=== PATIENT | female | born 1965 | race Caucasian/White ===

== ENCOUNTER 2016-12-21 06:59 | Inpatient (IN) | payer OTHER ==
[~2016-12-21] VITALS: Ht 162.6 cm; Wt 91.9 kg
[~2016-12-21 06:59] MED LIST: CEFDINIR300 M1 PO; LAC PO; ZES10 PO
--- NOTE | 2016-12-21 07:05 | NUR ---
PT BIBA FOR CO BACK PAIN. PER MEDIC, PT WAS GETTING OUT OF BED AND MISSTEPPED AND FELL ONTO A LINOLEUM FLOOR. PT STS SHE HAS HAD BACK PAIN ON AND OFF FOR "ALMOST A YEAR" AND REPORTS "IT USUALLY GOES AWAY ON ITS OWN." PT DENIES TRAUMA. PT AAO4, RESP E/U.
--- NOTE | 2016-12-21 07:16 | NUR ---
MSE COMPLETED BY DR. LEES, VERIFIED PT THAT SHE CANNOT POSSIBLY BE PT REPORTS SHE HAS TUBAL LIGATION
[2016-12-21 07:35] LABS: CALCIUM 9.1 mg/dL (8.5-10.1); CARBON DIOXIDE 28.3 mmol/L (21-32); CHLORIDE SERUM 105 mmol/L (98-107); GFR1 > 60 mL/min; GLUCOSE SERUM 127 mg/dL (74-106); POTASSIUM SERUM 4.1 mmol/L (3.5-5.1); SODIUM SERUM 141 mmol/L (136-145)
--- NOTE | 2016-12-21 07:37 | NUR ---
PT TAKEN TO CT VIA [facility] IN A STABLE CONDITION
[2016-12-21 07:40] LABS: ALBUMIN 3.5 g/dL (3.4-5.0); ALKALINE PHOSPHATASE 86 U/L (46-116); ALT/SGPT 33 U/L (14-59); AST/SGOT 15 U/L (15-37); BASOPHIL % 0.4 % (0-2); BILIRUBIN TOTAL 0.4 mg/dL (0.20-1.00); LIPASE 192 IU/L (73-393); PLATELET COUNT 301 x10^3mcL (130-400); RED CELL DISTRIBUTION WIDTH 13.7 % (11.5-14.5); TOTAL PROTEIN, SERUM 7.3 g/dL (6.4-8.2)
--- NOTE | 2016-12-21 07:56 | NUR ---
PT BACK FROM CT WITH NO INCIDENCE, PT RESTING IN BED IN A POSITION OF COMFORT WITH EYES CLOSED, VISIBLE RISE AND FALL OF CHEST NOTED, RESP EVEN AND UNLABORED, PT IN NO ACUTE DISTRESS, SIDE RAILS UPX2, ON OXYGEN 2L VIA NC AND ON FULL MONITORS, CALL LIGHT WITHIN REACH, WILL CONTINUE TO MONITOR
--- NOTE | 2016-12-21 08:40 | NUR ---
PT DENIES TAKING ANY MEDICATIONS AT HOME, MRSA SWAB COLLECTED AND SENT TO LAB, PT RESTING IN BED IN A POSITION OF COMFORT, RESP EVEN AND UNLABORED, IN NO ACUTE DISTRESS, CALL LIGHT WITHIN REACH, WILL CONTINUE TO MONITOR
--- NOTE | 2016-12-21 08:53 | NUR ---
VIVIEN BY DR. LEES FOR PT TO BE ADMITTED TO TELE WITH OUT URINE COLLECTION
--- NOTE | 2016-12-21 08:57 | NUR ---
REPORT GIVEN TO ROBE BALES TELE FLOOR TO ASSUME CARE OF PT AFTER TRANSPORT
[2016-12-21 09:18] LABS: CHOLESTEROL/HDL RATIO 3.9; MAGNESIUM 2.3 mg/dL (1.8-2.4); PHOSPHOROUS 4.6 mg/dL (2.5-4.9)
[2016-12-21 09:22] LABS: T3 TOTAL 1.32 ng/mL
[2016-12-21 09:48] LABS: FREE T4 0.99 ng/dL (0.76-1.46); FREE THYROXINE INDEX 2.4 ug/dL (1.4-4.5); T4(THYROXINE) 7.2 ug/dL (4.7-13.3)
--- NOTE | 2016-12-21 10:00 | NUR ---
PT RECEIVED FROM ER WITH C/O BACK PAIN AFTER FALLING OFF THE BED THIS AM. PT DROWSY BUT AROUSABLE. ALERT AND ORIENTED. NO ACUTE RESP. DISTRESS NOTED. VS WNL. PT REPOSITIONED IN BED FOR COMFORT AND CALL LIGHT WITHIN REAC. IVF INITIATED, INFUSING WELL AND SITE CLEAR. WILL CONTINUE W/PLAN OF CARE.
[2016-12-21 13:17] VITALS: BP 142/82
[2016-12-21 13:22] VITALS: Ht 162.6 cm; Wt 91.9 kg
[2016-12-21 14:10] LABS: microscopic required? YES; urine erythrocyte 1+ (NEGATIVE)
[2016-12-21 14:11] VITALS: BP 144/85
[2016-12-21 14:45] LABS: AMPHETAMINE QUAL UR POSITIVE (NEG <=1000)
--- NOTE | 2016-12-21 14:49 | NUR ---
FLEXIRIL GIVEN FOR BACK SPASMS WITH FAIR RELIEF. PT SLEEPING AT THIS TIME. NO ACUTE DISTRESS NOTED.
[2016-12-21 16:31] VITALS: BP 122/75
--- NOTE | 2016-12-21 18:00 | NUR ---
PT STILL SLEEPING BUT AROUSABLE, AWAKEN BY VERBAL COMMANDS BUT WILL FALL BACK TO SLEEP. NO ACUTE RESP. DISTRESS NOTED. IVF INFUSING WELL AND SITE CLEAR. CALL LIGHT WITHIN REACH.
--- NOTE | 2016-12-21 18:47 | NUR ---
PT REMAINS SLEEPING, NO ACUTE RESP. DISTRESS NOTED. NO CHANGES IN VS. IVF INFUSING WELL AND SITE CLEAR. CALL LIGHT WITHIN REACH. WILL BE ENDORSED TO INCOMING SHIFT.
--- NOTE | 2016-12-21 19:02 | NUR ---
RECEIVED REPORT FROM ROBE ROMO, WILL TAKE OVER CARE. PT RESTING IN BED NO PAIN OR DISTRESS NOTED, WILL CONTINUE TO MONITOR.
--- NOTE | 2016-12-21 19:50 | NUR ---
PT LYING IN BED RESTING, AOX4, PT STATES NO PAIN AT THIS TIME, VERY TIRED, ABD SOFT, ROUND, NONTENDER, BOWEL SOUNDS ACTIVE X4, PT CALM AND COOPERATIVE, WILL CONTINUE TO MONITOR.
[2016-12-21 22:05] VITALS: BP 145/56
--- NOTE | 2016-12-22 02:00 | NUR ---
PT IN BED RESTING, NO S/S OF DISTRESS, WILL CONTINUE TO MONITOR
[2016-12-22 06:10] LABS: CALCIUM 8.6 mg/dL (8.5-10.1); CARBON DIOXIDE 27.7 mmol/L (21-32); CHLORIDE SERUM 106 mmol/L (98-107); CREATININE SERUM 0.8 mg/dL (0.6-1.0); GFR1 > 60 mL/min; GLUCOSE SERUM 116 mg/dL (74-106); POTASSIUM SERUM 3.9 mmol/L (3.5-5.1); SODIUM SERUM 141 mmol/L (136-145)
[2016-12-22 06:15] VITALS: BP 141/68
--- NOTE | 2016-12-22 07:15 | NUR ---
REPORT GIVEN TO ROBE BALES, WILL ENDORSE CARE
--- NOTE | 2016-12-22 07:50 | NUR ---
RECEIVED SLEEPING BUT AROUSABLE. NO ACUTE DISTRESS NOTED. NO S/S OF PAIN OR DISCOMFORT. IVF INFUSING WELL AND SITE CLEAR. CALL LIGHT WITHIN REACH. WILL CONTINUE W/PLAN OF CARE.
[2016-12-22 09:20] VITALS: BP 143/77
[2016-12-22 12:53] VITALS: BP 149/77
--- NOTE | 2016-12-22 15:22 | NUR ---
DOSING ON AND OFF, NO DISTRESS NOTED. NO C/O PAIN
[2016-12-22 17:01] VITALS: BP 112/69
--- NOTE | 2016-12-22 18:48 | NUR ---
PT REMAINS IN NO DISTRESS. AWAKE, ALERT AND ORIENTED. NO CHANGES IN VS. NO C/O PAIN OR DISCOMFORT AT THIS TIME. IVF INFUSING WELL AND SITE CLEAR. CALL LIGHT WITHIN REACH. WILL BE ENDORSED TO INCOMING SHIFT.
--- NOTE | 2016-12-22 19:28 | NUR ---
awake, somewhat drowsy. per report, slept through most of am shift. able to make needs known. stated her family was here, but cannot recall whether they left her phone or not. no phone noted at bedside, table or cabinet. ivf of ns at 100ml/hr. breathing even and unlabored on room air. stated comfortable at this time.
[2016-12-22 20:44] VITALS: BP 124/78
--- NOTE | 2016-12-23 00:01 | NUR ---
AMBULATED TO RESTROOM WITH ASSISTANCE.
[2016-12-23 05:52] VITALS: BP 134/80
[2016-12-23 06:26] LABS: BASOPHIL % 0.2 % (0-2); PLATELET COUNT 286 x10^3mcL (130-400); RED CELL DISTRIBUTION WIDTH 13.7 % (11.5-14.5)
[2016-12-23 07:00] LABS: CALCIUM 8.8 mg/dL (8.5-10.1); CARBON DIOXIDE 28.4 mmol/L (21-32); CHLORIDE SERUM 106 mmol/L (98-107); CREATININE SERUM 0.9 mg/dL (0.6-1.0); GFR1 > 60 mL/min; GLUCOSE SERUM 102 mg/dL (74-106); MAGNESIUM 2.4 mg/dL (1.8-2.4); PHOSPHOROUS 3.5 mg/dL (2.5-4.9); POTASSIUM SERUM 4.6 mmol/L (3.5-5.1); SODIUM SERUM 142 mmol/L (136-145)
[2016-12-23 07:03] LABS: ALBUMIN 3.2 g/dL (3.4-5.0)
--- NOTE | 2016-12-23 07:05 | NUR ---
EYES CLOSED, BREATHING EVEN AND UNLABORED. NO MOANING OR GRIMACING NOTED. ENDORSED TO NURSE ROMO
[2016-12-23 09:32] VITALS: BP 128/86
--- NOTE | 2016-12-23 13:35 | NUR ---
PT AWAKE AND ALERT. DENIES PAIN AT THIS TIME. SITTING ON BED EATING LUNCH. NO DISTRESS NOTED.
[2016-12-23] MEDS ORDERED: LEVAQUIN750 MG PO (15:42)
[2016-12-23] MEDS ORDERED: LAC PO (15:43)
[2016-12-23] MEDS ORDERED: NORCO1 TA2 PO (15:44)
[2016-12-23] MEDS ORDERED: COLACE100 MG PO (15:44)
[2016-12-23] MEDS ORDERED: GABAPENTIN100 M2 PO (15:45)
[2016-12-23] MEDS ORDERED: ZESTRIL5 MG PO (15:46)
[2016-12-23] MEDS ORDERED: LIPI10 PO (15:49)
[2016-12-23] MEDS ORDERED: ASPIR 8181 MG PO (15:49)
[2016-12-23 16:28] VITALS: BP 128/86
[2016-12-23 17:45] VITALS: BP 130/78
--- NOTE | 2016-12-23 17:55 | NUR ---
PT WILL BE DC'D HOME TODAY. WAITING FOR FAMILY. HL REMOVED AND SITE CLEAR.PT REQUESTED FOR DC INSTRUCTIONS TO BE REVIEWED WHEN DAUGHTER GETS HERE.
--- NOTE | 2016-12-23 18:33 | NUR ---
PT DC'D HOME WITH FAMILY IN NO DISTRESS. AWAKE AND ALERT. VS STABLE. NO C/O PAIN OR DISCOMFORT AT THE TIME OF DC. DC INSTRUCTIONS REVIEWED WITH PT AND DAUGHTER. RX GIVEN. PERSONAL BELONGINGS TAKEN HOME.
== END 2016-12-23 18:28 | disposition home or self-care (01) | DRG 347 ==
LOC: ED 06:59 → MU 08:34 → DU 08:34 → MU 12-22 10:28
PROVIDERS: Family Medicine; Specialist; ADMIT Family Medicine
DX: M48.07 Spinal stenosis, lumbosacral region (principal); I10 Essential (primary) hypertension; N39.0 Urinary tract infection, site not specified; E11.9 Type 2 diabetes mellitus without complications; F32.9 Major depressive disorder, single episode, unspecified; B95.61 Methicillin susceptible Staphylococcus aureus infection as the cause of diseases classified elsewhere; G43.909 Migraine, unspecified, not intractable, without status migrainosus; M48.06 Spinal stenosis, lumbar region; F41.1 Generalized anxiety disorder; J98.11 Atelectasis; E66.9 Obesity, unspecified; M12.9 Arthropathy, unspecified; I70.209 Unspecified atherosclerosis of native arteries of extremities, unspecified extremity; Z98.51 Tubal ligation status; Z91.14 Patient's other noncompliance with medication regimen; Z90.49 Acquired absence of other specified parts of digestive tract; Z68.34 Body mass index [BMI] 34.0-34.9, adult; Z83.3 Family history of diabetes mellitus
CPT/HCPCS: 82962; 83880; 84439; 94150; 97116-GP; J0696; J1100; J1885; J1956; J2405; J2930; J3010; J7030; Q0092

== ENCOUNTER 2017-09-11 12:24 | Inpatient (IN) | payer OTHER ==
[~2017-09-11] VITALS: Ht 162.6 cm; Wt 96.3 kg
[~2017-09-11 12:24] MED LIST changes: +ASPIR 8181 MG PO; +COLACE100 MG PO; +GABAPENTIN100 M2 PO; +LEVAQUIN750 MG PO; +LIPI10 PO; +NORCO1 TA2 PO; +ZESTRIL5 MG PO
[2017-09-11 12:26] VITALS: Ht 162.6 cm; Wt 96.3 kg
[2017-09-11 12:55] LABS: BASOPHIL % 0.2 % (0-2); PLATELET COUNT 330 x10^3mcL (130-400); RED CELL DISTRIBUTION WIDTH 13.8 % (11.5-14.5)
[2017-09-11 13:05] LABS: CALCIUM 9.5 mg/dL (8.5-10.1); CARBON DIOXIDE 27.6 mmol/L (21-32); CHLORIDE SERUM 103 mmol/L (98-107); GFR1 > 60 mL/min; GLUCOSE SERUM 115 mg/dL (74-106); SODIUM SERUM 140 mmol/L (136-145)
[2017-09-11 13:10] LABS: ALBUMIN 3.7 g/dL (3.4-5.0); ALKALINE PHOSPHATASE 90 U/L (46-116); ALT/SGPT 37 U/L (14-59); AST/SGOT 16 U/L (15-37); BILIRUBIN TOTAL 0.8 mg/dL (0.20-1.00); LIPASE 131 IU/L (73-393); TOTAL PROTEIN, SERUM 7.9 g/dL (6.4-8.2)
[2017-09-11 15:03] VITALS: BP 115/73
[2017-09-11 15:23] LABS: CHOLESTEROL/HDL RATIO 3.1; MAGNESIUM 2.4 mg/dL (1.8-2.4); PHOSPHOROUS 3.7 mg/dL (2.5-4.9)
[2017-09-11 15:32] LABS: T3 TOTAL 1.14 ng/mL
[2017-09-11 15:33] LABS: FREE T4 1.15 ng/dL (0.76-1.46); FREE THYROXINE INDEX 2.8 ug/dL (1.4-4.5); T4(THYROXINE) 8.1 ug/dL (4.7-13.3)
[2017-09-11 20:04] VITALS: BP 133/75
[2017-09-12 05:17] VITALS: BP 115/69
[2017-09-12 06:15] LABS: CARBON DIOXIDE 26.9 mmol/L (21-32); CHLORIDE SERUM 105 mmol/L (98-107); CREATININE SERUM 0.8 mg/dL (0.6-1.0); GFR1 > 60 mL/min; GLUCOSE SERUM 147 mg/dL (74-106); POTASSIUM SERUM 4.1 mmol/L (3.5-5.1); SODIUM SERUM 138 mmol/L (136-145)
[2017-09-12 06:21] LABS: BASOPHIL % 0.5 % (0-2); PLATELET COUNT 312 x10^3mcL (130-400); RED CELL DISTRIBUTION WIDTH 13.5 % (11.5-14.5)
[2017-09-12 08:40] VITALS: BP 127/73
[2017-09-12] MEDS ORDERED: GABAPENTIN100 M2 PO (09:08)
[2017-09-12] MEDS ORDERED: METHOCARBAMOL500 MG PO (09:09)
[2017-09-12] MEDS ORDERED: SERTRALINE50 M1 PO (09:25)
[2017-09-12 12:44] VITALS: BP 125/70
[2017-09-12 15:11] VITALS: BP 125/70
[2017-09-12 15:55] LABS: microscopic required? NO
[2017-09-12 16:08] LABS: UA SPECIFIC GRAVITY >=1.030 (1.005-1.035); urine erythrocyte NEGATIVE (NEGATIVE)
[2017-09-12 16:23] LABS: AMPHETAMINE QUAL UR POSITIVE (NEG <=1000)
[2017-09-12 17:23] VITALS: BP 113/72
== END 2017-09-12 17:48 | disposition home health service (06) | DRG 347 ==
LOC: ED 12:24 → DU 14:16
PROVIDERS: Emergency Medicine; Family Medicine
DX: M51.26 Other intervertebral disc displacement, lumbar region (principal); E11.42 Type 2 diabetes mellitus with diabetic polyneuropathy; I10 Essential (primary) hypertension; F32.9 Major depressive disorder, single episode, unspecified; Z98.51 Tubal ligation status; E78.5 Hyperlipidemia, unspecified; F41.1 Generalized anxiety disorder; G43.909 Migraine, unspecified, not intractable, without status migrainosus; Z90.49 Acquired absence of other specified parts of digestive tract; E66.9 Obesity, unspecified; Z68.32 Body mass index [BMI] 32.0-32.9, adult; F17.200 Nicotine dependence, unspecified, uncomplicated; Z91.19 Patient's noncompliance with other medical treatment and regimen
CPT/HCPCS: 82962; 84439; 97110-GP; 97116-GP; J1100; J1885; J3010; J7030; Q0092

== ENCOUNTER 2018-01-05 03:47 | Emergency (ER) | payer OTHER ==
[~2018-01-05] VITALS: Ht 157.5 cm; Wt 99.8 kg
[~2018-01-05 03:47] MED LIST changes: +METHOCARBAMOL500 MG PO; +SERTRALINE50 M1 PO
[2018-01-05 03:54] VITALS: Ht 157.5 cm; Wt 99.8 kg
[2018-01-05 06:12] LABS: BASOPHIL % 0.5 % (0-2); PLATELET COUNT 249 x10^3mcL (130-400); RED CELL DISTRIBUTION WIDTH 13.7 % (11.5-14.5)
[2018-01-05 06:34] LABS: CALCIUM 8.8 mg/dL (8.5-10.1); CARBON DIOXIDE 25.5 mmol/L (21-32); CHLORIDE SERUM 106 mmol/L (98-107); GFR1 > 60 mL/min; GLUCOSE SERUM 129 mg/dL (74-106); POTASSIUM SERUM 3.9 mmol/L (3.5-5.1); SODIUM SERUM 141 mmol/L (136-145)
[2018-01-05 06:39] LABS: ALBUMIN 3.4 g/dL (3.4-5.0); ALKALINE PHOSPHATASE 90 U/L (46-116); ALT/SGPT 33 U/L (14-59); AST/SGOT 19 U/L (15-37); BILIRUBIN TOTAL 0.22 mg/dL (0.20-1.00)
[2018-01-05 08:27] VITALS: BP 112/62
== END 2018-01-05 08:48 | disposition home or self-care (01) ==
LOC: ED 03:47
PROVIDERS: Emergency Medicine
DX: R51 Headache (principal); R11.0 Nausea; I10 Essential (primary) hypertension; E78.00 Pure hypercholesterolemia, unspecified
CPT/HCPCS: J1885; J2270; J2765; J7030

== ENCOUNTER 2018-01-19 16:04 | Emergency (ER) | payer OTHER ==
[~2018-01-19] VITALS: Ht 160 cm; Wt 99.3 kg
[2018-01-19 16:16] VITALS: Ht 160 cm; Wt 99.3 kg
[2018-01-19 18:41] VITALS: BP 127/96
== END 2018-01-19 18:41 | disposition home or self-care (01) ==
LOC: ED 16:04
DX: G43.909 Migraine, unspecified, not intractable, without status migrainosus (principal); F43.20 Adjustment disorder, unspecified; F17.210 Nicotine dependence, cigarettes, uncomplicated; E78.00 Pure hypercholesterolemia, unspecified; I10 Essential (primary) hypertension
CPT/HCPCS: J1885

== ENCOUNTER 2018-02-23 22:28 | Inpatient (IN) | payer OTHER ==
[~2018-02-23] VITALS: Ht 160 cm; Wt 99.8 kg
[2018-02-23 23:10] VITALS: Ht 160 cm; Wt 99.8 kg
[2018-02-24 00:28] LABS: BASOPHIL % 0.3 % (0-2); PLATELET COUNT 321 x10^3mcL (130-400); RED CELL DISTRIBUTION WIDTH 14.3 % (11.5-14.5)
[2018-02-24 00:36] LABS: CALCIUM 8.8 mg/dL (8.5-10.1); CHLORIDE SERUM 107 mmol/L (98-107); GFR1 > 60 mL/min; GLUCOSE SERUM 130 mg/dL (74-106); POTASSIUM SERUM 3.7 mmol/L (3.5-5.1); SODIUM SERUM 144 mmol/L (136-145)
[2018-02-24 00:41] LABS: ALBUMIN 3.6 g/dL (3.4-5.0); ALKALINE PHOSPHATASE 84 U/L (46-116); ALT/SGPT 59 U/L (14-59); AST/SGOT 24 U/L (15-37); BILIRUBIN TOTAL 0.2 mg/dL (0.20-1.00); TOTAL PROTEIN, SERUM 7.7 g/dL (6.4-8.2)
[2018-02-24 08:56] VITALS: BP 126/83
[2018-02-24 09:16] LABS: MAGNESIUM 2.6 mg/dL (1.8-2.4); PHOSPHOROUS 4.4 mg/dL (2.5-4.9)
[2018-02-24 09:17] LABS: CHOLESTEROL/HDL RATIO 5.5
[2018-02-24 09:23] LABS: FREE T4 0.89 ng/dL (0.76-1.46); FREE THYROXINE INDEX 1.8 ug/dL (1.4-4.5); T4(THYROXINE) 5.8 ug/dL (4.7-13.3)
[2018-02-24 09:52] LABS: T3 TOTAL 1.22 ng/mL
[2018-02-24 11:05] VITALS: BP 126/83
[2018-02-24] MEDS ORDERED: ZESTRIL5 MG PO (12:12)
[2018-02-24] MEDS ORDERED: ZOLOFT25 MG PO (12:12)
[2018-02-24] MEDS ORDERED: ROB500 PO (12:13)
[2018-02-24] MEDS ORDERED: LIPI10 PO (12:14)
[2018-02-24] MEDS ORDERED: ASPIR 8181 MG PO (12:14)
[2018-02-24] MEDS ORDERED: GABAPENTIN100 M2 PO (12:15)
[2018-02-24 12:28] VITALS: BP 114/62
[2018-02-24 16:40] VITALS: BP 110/68
[2018-02-24 18:14] LABS: UA SPECIFIC GRAVITY >=1.030 (1.005-1.035); microscopic required? YES; urine erythrocyte NEGATIVE (NEGATIVE)
[2018-02-24 18:27] LABS: AMPHETAMINE QUAL UR NONE DETECTED (See below)
[2018-02-24 21:22] VITALS: BP 111/57
[2018-02-25 05:27] VITALS: BP 139/73
[2018-02-25 06:33] LABS: CALCIUM 8.7 mg/dL (8.5-10.1); CARBON DIOXIDE 26.7 mmol/L (21-32); CHLORIDE SERUM 109 mmol/L (98-107); GFR1 > 60 mL/min; GLUCOSE SERUM 117 mg/dL (74-106); MAGNESIUM 2.4 mg/dL (1.8-2.4); PHOSPHOROUS 4.4 mg/dL (2.5-4.9); POTASSIUM SERUM 5.2 mmol/L (3.5-5.1); SODIUM SERUM 142 mmol/L (136-145)
[2018-02-25 06:50] LABS: BASOPHIL % 0.2 % (0-2); PLATELET COUNT 288 x10^3mcL (130-400)
[2018-02-25 10:35] VITALS: BP 129/69
[2018-02-25 13:44] VITALS: BP 136/79
[2018-02-25 16:25] VITALS: BP 127/67
[2018-02-25 20:49] VITALS: BP 121/58
[2018-02-26 05:44] VITALS: BP 137/70
[2018-02-26 06:34] LABS: BASOPHIL % 0.5 % (0-2); PLATELET COUNT 276 x10^3mcL (130-400); RED CELL DISTRIBUTION WIDTH 13.9 % (11.5-14.5)
[2018-02-26 06:40] LABS: CALCIUM 8.8 mg/dL (8.5-10.1); CARBON DIOXIDE 27.2 mmol/L (21-32); CREATININE SERUM 1.1 mg/dL (0.6-1.0); MAGNESIUM 2.4 mg/dL (1.8-2.4); PHOSPHOROUS 4.3 mg/dL (2.5-4.9); POTASSIUM SERUM 5.3 mmol/L (3.5-5.1)
[2018-02-26 09:36] VITALS: BP 126/66
[2018-02-26 12:49] VITALS: BP 150/82
[2018-02-26 17:13] VITALS: BP 136/67
[2018-02-26 17:15] VITALS: BP 148/80
[2018-02-26 21:11] VITALS: BP 141/74
[2018-02-27 05:20] VITALS: BP 136/56
[2018-02-27 09:47] VITALS: BP 130/65
[2018-02-27 17:48] VITALS: BP 145/72
[2018-02-27 18:33] LABS: BASOPHIL % 0.9 % (0-2); PLATELET COUNT 294 x10^3mcL (130-400); RED CELL DISTRIBUTION WIDTH 13.9 % (11.5-14.5)
[2018-02-27 18:39] LABS: CALCIUM 8.6 mg/dL (8.5-10.1); CARBON DIOXIDE 29.1 mmol/L (21-32); CHLORIDE SERUM 105 mmol/L (98-107); GFR1 > 60 mL/min; GLUCOSE SERUM 147 mg/dL (74-106); POTASSIUM SERUM 3.6 mmol/L (3.5-5.1); SODIUM SERUM 139 mmol/L (136-145)
[2018-02-27 20:46] VITALS: BP 134/65
[2018-02-28 05:53] VITALS: BP 114/60
[2018-02-28 06:19] LABS: ALKALINE PHOSPHATASE 77 U/L (46-116); ALT/SGPT 53 U/L (14-59); AST/SGOT 24 U/L (15-37); BILIRUBIN TOTAL 0.5 mg/dL (0.20-1.00); CALCIUM 8.7 mg/dL (8.5-10.1); CARBON DIOXIDE 26.6 mmol/L (21-32); CHLORIDE SERUM 104 mmol/L (98-107); CREATININE SERUM 0.8 mg/dL (0.6-1.0); GFR1 > 60 mL/min; GLUCOSE SERUM 107 mg/dL (74-106); POTASSIUM SERUM 3.7 mmol/L (3.5-5.1); SODIUM SERUM 141 mmol/L (136-145); TOTAL PROTEIN, SERUM 6.9 g/dL (6.4-8.2)
[2018-02-28 06:21] LABS: BASOPHIL % 0.3 % (0-2); PLATELET COUNT 290 x10^3mcL (130-400); RED CELL DISTRIBUTION WIDTH 13.9 % (11.5-14.5)
[2018-02-28 06:29] LABS: ALBUMIN 3.2 g/dL (3.4-5.0)
[2018-02-28 08:28] VITALS: BP 127/78
[2018-02-28 13:01] VITALS: BP 132/71
[2018-02-28 16:28] VITALS: BP 142/77
[2018-02-28 20:32] VITALS: BP 148/55
[2018-03-01 05:43] VITALS: BP 131/64
[2018-03-01 06:18] LABS: BASOPHIL % 0.4 % (0-2); PLATELET COUNT 273 x10^3mcL (130-400); RED CELL DISTRIBUTION WIDTH 13.8 % (11.5-14.5)
[2018-03-01 06:21] LABS: CALCIUM 8.6 mg/dL (8.5-10.1); CARBON DIOXIDE 25.8 mmol/L (21-32); CHLORIDE SERUM 109 mmol/L (98-107); CREATININE SERUM 0.9 mg/dL (0.6-1.0); GFR1 > 60 mL/min; GLUCOSE SERUM 106 mg/dL (74-106); POTASSIUM SERUM 3.8 mmol/L (3.5-5.1); SODIUM SERUM 142 mmol/L (136-145)
[2018-03-01 08:14] VITALS: BP 132/66
[2018-03-01 09:30] VITALS: BP 128/61
[2018-03-01 12:20] VITALS: BP 150/77
[2018-03-01 16:00] VITALS: BP 133/72
[2018-03-01] MEDS ORDERED: LIPI10 PO (17:01)
[2018-03-01] MEDS ORDERED: ECO81 PO (17:01)
[2018-03-01] MEDS ORDERED: METHOCARBAMOL500 MG PO (17:01)
[2018-03-01] MEDS ORDERED: ZES5 PO (17:01)
[2018-03-01] MEDS ORDERED: NEU100 PO (17:02)
[2018-03-01] MEDS ORDERED: TOR15I IV (17:02)
[2018-03-01] MEDS ORDERED: SERTRALINE50 M1 PO (17:02)
[2018-03-01 17:25] VITALS: BP 133/72
== END 2018-03-01 18:40 | DRG 347 ==
LOC: ED 22:28 → DU 02-24 07:39
PROVIDERS: Emergency Medicine; Family Medicine; Internal Medicine
DX: M51.37 Other intervertebral disc degeneration, lumbosacral region (principal); G93.41 Metabolic encephalopathy; E66.01 Morbid (severe) obesity due to excess calories; E87.5 Hyperkalemia; M48.02 Spinal stenosis, cervical region; F33.1 Major depressive disorder, recurrent, moderate; M54.5 Low back pain; E78.00 Pure hypercholesterolemia, unspecified; G89.29 Other chronic pain; E78.5 Hyperlipidemia, unspecified; F17.210 Nicotine dependence, cigarettes, uncomplicated; N39.0 Urinary tract infection, site not specified; M47.892 Other spondylosis, cervical region; B96.20 Unspecified Escherichia coli [E. coli] as the cause of diseases classified elsewhere; F41.1 Generalized anxiety disorder; M48.061 Spinal stenosis, lumbar region without neurogenic claudication; R73.03 Prediabetes; W01.0XXA Fall on same level from slipping, tripping and stumbling without subsequent striking against object, initial encounter; Y93.89 Activity, other specified; Y92.89 Other specified places as the place of occurrence of the external cause; Y99.8 Other external cause status; Z98.51 Tubal ligation status; Z68.39 Body mass index [BMI] 39.0-39.9, adult
CPT/HCPCS: 83880; 84439; 97110-GP; 97116-GP; 97530-GP; 97535-GP; J0696; J1885; J2060; J2270; J2405; J7030; Q0162

== ENCOUNTER 2018-03-21 14:50 | Emergency (ER) | payer OTHER ==
[~2018-03-21] VITALS: Ht 157.5 cm; Wt 99.8 kg
[~2018-03-21 14:50] MED LIST changes: +ECO81 PO; +NEU100 PO; +ROB500 PO; +TOR15I IV; +ZES5 PO; +ZOLOFT25 MG PO
[2018-03-21 15:04] VITALS: Ht 157.5 cm; Wt 99.8 kg
[2018-03-21 17:28] VITALS: BP 138/70
== END 2018-03-21 17:28 | disposition home or self-care (01) ==
LOC: ED 14:50
DX: G89.29 Other chronic pain (principal); M54.9 Dorsalgia, unspecified; F41.9 Anxiety disorder, unspecified; F17.210 Nicotine dependence, cigarettes, uncomplicated; I10 Essential (primary) hypertension; E78.00 Pure hypercholesterolemia, unspecified; Z98.51 Tubal ligation status
CPT/HCPCS: 36600; J1885; J2060

== ENCOUNTER 2018-04-12 15:50 | Emergency (ER) | payer OTHER ==
[~2018-04-12] VITALS: Ht 160 cm; Wt 100.7 kg
[2018-04-12 15:53] VITALS: Ht 160 cm; Wt 100.7 kg
[2018-04-12 16:59] LABS: BASOPHIL % 0.4 % (0-2); PLATELET COUNT 312 x10^3mcL (130-400); RED CELL DISTRIBUTION WIDTH 13.2 % (11.5-14.5)
[2018-04-12 17:03] LABS: CARBON DIOXIDE 25.5 mmol/L (21-32); CHLORIDE SERUM 106 mmol/L (98-107); CREATININE SERUM 0.9 mg/dL (0.6-1.0); GFR1 > 60 mL/min; GLUCOSE SERUM 105 mg/dL (74-106); POTASSIUM SERUM 3.5 mmol/L (3.5-5.1); SODIUM SERUM 140 mmol/L (136-145)
[2018-04-12 17:08] LABS: ALBUMIN 3.7 g/dL (3.4-5.0); ALKALINE PHOSPHATASE 97 U/L (46-116); ALT/SGPT 64 U/L (14-59); AST/SGOT 29 U/L (15-37); BILIRUBIN TOTAL 0.4 mg/dL (0.20-1.00); LIPASE 186 IU/L (73-393); MAGNESIUM 2.3 mg/dL (1.8-2.4); PHOSPHOROUS 3.9 mg/dL (2.5-4.9); TOTAL PROTEIN, SERUM 7.7 g/dL (6.4-8.2)
[2018-04-12 17:38] LABS: microscopic required? NO
[2018-04-12 17:42] LABS: UA SPECIFIC GRAVITY >=1.030 (1.005-1.035); urine erythrocyte NEGATIVE (NEGATIVE)
[2018-04-12 18:20] VITALS: BP 134/71
== END 2018-04-12 18:20 | disposition home or self-care (01) ==
LOC: ED 15:50
PROVIDERS: Emergency Medicine
DX: R07.89 Other chest pain (principal); R51 Headache; G89.29 Other chronic pain; M54.9 Dorsalgia, unspecified; I10 Essential (primary) hypertension; E78.00 Pure hypercholesterolemia, unspecified; F41.9 Anxiety disorder, unspecified; Z98.51 Tubal ligation status
CPT/HCPCS: 83880; J1885; J2270; J2405; J7030; Q0092

== ENCOUNTER 2018-06-06 17:41 | Emergency (ER) | payer OTHER ==
[~2018-06-06] VITALS: Ht 160 cm; Wt 100.7 kg
[2018-06-06 17:43] VITALS: Ht 160 cm; Wt 100.7 kg
[2018-06-06 22:08] VITALS: BP 128/77
== END 2018-06-06 22:14 | disposition home or self-care (01) ==
LOC: ED 17:41
DX: R05 Cough (principal); R51 Headache; I10 Essential (primary) hypertension; E78.00 Pure hypercholesterolemia, unspecified; F41.9 Anxiety disorder, unspecified; F17.210 Nicotine dependence, cigarettes, uncomplicated; Z98.51 Tubal ligation status
CPT/HCPCS: J1885; Q0162

== ENCOUNTER 2018-07-20 17:11 | Emergency (ER) | payer OTHER ==
[~2018-07-20] VITALS: Ht 154.9 cm; Wt 90.7 kg
[2018-07-20 17:16] VITALS: Ht 154.9 cm; Wt 90.7 kg
[2018-07-20 18:55] LABS: BASOPHIL % 0.4 % (0-2); PLATELET COUNT 308 x10^3mcL (130-400); RED CELL DISTRIBUTION WIDTH 14.4 % (11.5-14.5)
[2018-07-20 19:00] LABS: CALCIUM 8.9 mg/dL (8.5-10.1); CARBON DIOXIDE 29.4 mmol/L (21-32); CREATININE SERUM 1.1 mg/dL (0.6-1.0); POTASSIUM SERUM 3.8 mmol/L (3.5-5.1)
[2018-07-20 19:05] LABS: ALBUMIN 3.6 g/dL (3.4-5.0); BILIRUBIN TOTAL 0.25 mg/dL (0.20-1.00); MAGNESIUM 2.4 mg/dL (1.8-2.4); TOTAL PROTEIN, SERUM 8.1 g/dL (6.4-8.2)
[2018-07-20 21:09] VITALS: BP 120/67
== END 2018-07-20 21:09 | disposition home or self-care (01) ==
LOC: ED 17:11
PROVIDERS: Emergency Medicine
DX: G89.29 Other chronic pain (principal); M54.5 Low back pain; R55 Syncope and collapse; R79.89 Other specified abnormal findings of blood chemistry; R74.0 Nonspecific elevation of levels of transaminase and lactic acid dehydrogenase [LDH]; M54.2 Cervicalgia; R51 Headache; F41.9 Anxiety disorder, unspecified; E78.00 Pure hypercholesterolemia, unspecified; I10 Essential (primary) hypertension
CPT/HCPCS: 36415; J2270

== ENCOUNTER 2018-09-26 01:10 | Inpatient (IN) | payer OTHER ==
[~2018-09-26] VITALS: Ht 160 cm; Wt 102.3 kg
[2018-09-26 01:18] VITALS: Ht 160 cm; Wt 102.3 kg
--- NOTE | 2018-09-26 01:22 | NUR ---
PT BROUGHT IN BY AMBULANCE FOR CHEST PAIN, PRESSURE, DENIES SOB, NAUSEA, AND VOMITTING. PT HAD ONE EPISODE OF VOMITTING WHILE ASSESSING HER, APPROXIMATELY 100ML OF CLEAR VOMIT. PT AWAKE, ALERT, RESPIRATIONS EVEN AND UNLABORED. SAFETY PERCAUTIONS IN PLACE. WILL CONTINUE TO MONITOR.
--- NOTE | 2018-09-26 01:36 | NUR ---
MOTHER AT BEDSIDE
--- NOTE | 2018-09-26 01:39 | NUR ---
DR. DIAZ AT BEDSIDE FOR MSE
--- NOTE | 2018-09-26 01:54 | NUR ---
EKG AT BEDSIDE
[2018-09-26 02:24] LABS: CALCIUM 9.3 mg/dL (8.5-10.1); CARBON DIOXIDE 25.9 mmol/L (21-32); CREATININE SERUM 1.1 mg/dL (0.6-1.0); POTASSIUM SERUM 3.9 mmol/L (3.5-5.1)
[2018-09-26 02:29] LABS: ALBUMIN 3.4 g/dL (3.4-5.0); BILIRUBIN TOTAL 3.56 mg/dL (0.20-1.00); TOTAL PROTEIN, SERUM 7.9 g/dL (6.4-8.2)
--- NOTE | 2018-09-26 02:40 | NUR ---
MEDICATED PER EMAR. PT WAS MOANING PRIOR TO MEDICATION. AT THIS POINT PT IS RESTING WITH EYES CLOSED, APPEARS DROWSY, RESPONDS TO LIGHT TACTILE STIMULI 02 SAT WAS 89% ON ROOM AIR, PLACED ON 2L/NC WITH 02 SAT UP TO 100%. RESPIRATIONS REMAIN EVEN AND UNLABORED. WILL CONTINUE TO MONITOR CLOSELY
[2018-09-26 02:48] LABS: BASOPHIL % 0.3 % (0-2); PLATELET COUNT 285 x10^3mcL (130-400)
[2018-09-26 02:49] LABS: RED CELL DISTRIBUTION WIDTH 15.4 % (11.5-14.5)
--- NOTE | 2018-09-26 03:48 | NUR ---
PATIENT CURRENTLY RESTING WITH EYES CLOSED, RESPIRATIONS EVEN AND UNLABORED. SAFETY PRECAUTIONS IN PLACE.
[2018-09-26] MEDS ORDERED: GABAPENTIN100 M2 (04:22)
[2018-09-26] MEDS ORDERED: NAPROXEN375 MG (04:22)
[2018-09-26] MEDS ORDERED: NORCO1 TA2 (04:22)
--- NOTE | 2018-09-26 04:48 | NUR ---
REPORT GIVEN TO KINGSTON NAGEL, ALL QUESTIONS AND CONCERNS WERE ADDRESSED. PT WAS RESTING WITH EYES CLOSED, RESPONDED TO VERBAL STIMULI, RESPIRATIONS EVEN AND UNLABORED. SAFETY PRECAUTIONS IN PLACE
[2018-09-26 05:02] LABS: CHOLESTEROL/HDL RATIO 6.7
--- NOTE | 2018-09-26 05:22 | NUR ---
PT WAS TRANSFERED TO ROOM 223A WITHOUT ANY ISSUES ENCOUNTERED, KINGSTON NAGEL ACCEPTED PATIENT. PT AWAKE, ALERT, RESPIRATIONS EVEN AND UNLABORED. IV SITE CDI AND PATENT WITH NO S/S OF INFILTRATION, REDNESS, EDEMA, OR DRAINAGE.
--- NOTE | 2018-09-26 05:25 | NUR ---
RECEIVED PT AWAKE, ALERT AND ORIENTED X4, DENIES HUNT, DIZZINESS AT THIS TIME. PT ON 2L VIA NC, BREATHING IS EVEN AND SLIGHTLY LABORED, DENIES FEELING SOB. TELE MONITOR IN PL, #10, SHOWING NSR, PT REPORTING SHARP EPIGASTRIC PAIN 9/, WILL MEDICATE PER EMAR. PT ALSO EXPERIENCING N/V, HEMATEMESIS NOTED. PT APPEARS RESTLESS AND ANXIOUS WELL, TOSSING AROUND IN BED AND MOANING, MOTHER IS AT BEDSIDE. IV NOTED TO RH, NO PAIN, SWELLING OR REDNESS NOTED TO AREA. ALL SAFETY AND COMFORT MEASURES MAINTAINED. PT ORIENTED TO ROOM AND ENVIRONMENT, CALL LIGHT AND PERSONAL ITEMS IN REACH. WILL CONTINUE TO MONITOR.
[2018-09-26 05:49] VITALS: BP 137/64
--- NOTE | 2018-09-26 07:00 | NUR ---
PT RESTING COMFORTABLY AT THIS TIME. EYES CLOSED, BREATHING IS E/U WITH NC IN PLACE AT 2L, NO DISTRESS OBSERVED. NO INDICATION OF DISCOMFORT AT THIS TIME. MOTHER IS AT BEDSIDE. ALL SAFETY AND COMFORT MEASURES MAINTAINED. CALL LIGHT AND PERSONAL ITEMS IN REACH. WILL ENDORSE CARE TO AM NURSE.
[2018-09-26 07:14] LABS: BASOPHIL % 0.4 % (0-2); PLATELET COUNT 263 x10^3mcL (130-400)
[2018-09-26 07:15] LABS: RED CELL DISTRIBUTION WIDTH 15.6 % (11.5-14.5)
--- NOTE | 2018-09-26 07:30 | NUR ---
PT IS AAOX 4, GROGGY. TELE [address] PL[address] READING SINUS IRVIN, HR 56 BPM. RESP EVEN AND UNLABORED. LUNG SOUNDS CTA. PT ON 2 LPM O2. ABDOMEN ROUND, FIRM, DISTENDED. BOWEL SOUNDS HYPOACTIVE. DENIES N/V. SKIN CDI. NO EDEMA NOTED. PERIPHERAL PULSES PALPABLE. IVF RUNNING TO RH, SITE IS PATENT, WITH NO S/S OF INFECTION OR INFILTRATION NOTED. PT DENIES PAIN AT THIS TIME. CALL LIGHT WITHIN REACH. BED IN LOW POSITION.
[2018-09-26 07:32] LABS: CALCIUM 8.8 mg/dL (8.5-10.1); CARBON DIOXIDE 23.7 mmol/L (21-32); CHLORIDE SERUM 102 mmol/L (98-107); CREATININE SERUM 0.9 mg/dL (0.6-1.0); GFR1 > 60 mL/min; GLUCOSE SERUM 236 mg/dL (74-106); MAGNESIUM 2.3 mg/dL (1.8-2.4); PHOSPHOROUS 3.4 mg/dL (2.5-4.9); POTASSIUM SERUM 3.7 mmol/L (3.5-5.1); SODIUM SERUM 136 mmol/L (136-145)
--- NOTE | 2018-09-26 08:04 | NUR ---
TELE 10 IS READING SINUS IRVIN, HT 56. UPON REVIEWING MONITOR STRIPS PT HAS BEEN TRENDING 50-[address] PERES TO MAKE HIM AWARE. AWAITING CALL BACK.
--- NOTE | 2018-09-26 09:00 | NUR ---
REPORTED TO DR. PERES PT HEART RATE HAS BEEN TRENDING BETWEEN 50-58 BPM. MORPHINE PRN HELD. NO NEW ORDERS AT THIS TIME.
[2018-09-26 09:17] VITALS: BP 172/76
--- NOTE | 2018-09-26 09:30 | NUR ---
PT REPORTS ACUTE NAUSEA. ZOFRAN GIVEN. A/M MEDS HELD DUE TO NAUSEA. PT REPORTS PAIN 12/15. B/P 172/76 (108), HR 55BPM, RR 20. NO MORPHINE GIVEN FOR PAIN AT THIS TIME DUE TO LOW HEART RATE. SET PT UP IN BED. ENCOURAGED HER TO TALK AND ORIENT TO SURROUNDING. PT IS GROGGY AT THIS TIME. WILL CONTINUE TO MONITOR. CALL LIGHT WITHIN REACH.
--- NOTE | 2018-09-26 09:54 | NUR ---
PT NAUSEA HAS DECREASED. PT STATES SHE CAN TOLERATE MEDICATION BY MOUTH AT THIS TIME. DUE MEDS GIVEN. ROUTINE ROBAXIN GIVEN FOR PAIN AND MUSCLE SPASM. CALL LIGHT WITHIN REACH.
[2018-09-26 11:25] LABS: microscopic required? NO
[2018-09-26 12:16] LABS: UA SPECIFIC GRAVITY 1.025 (1.005-1.035); urine erythrocyte NEGATIVE (NEGATIVE)
--- NOTE | 2018-09-26 12:49 | NUR ---
BS 163 3 UNITS REG INSULIN GIVEN S/Q. MALENA, PT EDUCATOR VISITED WITH PT. PT STATED TO MALENA THAT SHE IN NOT DIABETIC. MALENA REQUESTED THIS RN TO REPORT TO MD THAT PT NEEDS DIABETIC TEACHING, GLUCOMETER, TEST STRIPS, ETC WELL DIETARY CONSULT. PAGED DR. PERES, AWAITING CALL BACK. PT IS TOLERATING CCHO DIET WITH NO N/V AT THIS TIME. PT DENIES PAIN OR DISCOMFORT AT THIS TIME. CALL LIGHT WITHIN REACH.
[2018-09-26 14:34] VITALS: BP 128/69
[2018-09-26 15:05] LABS: AMPHETAMINE QUAL UR NONE DETECTED (See below)
--- NOTE | 2018-09-26 15:24 | NUR ---
IV FLUIDS REPLENISHED. PT SITTING UP IN BED VISITING WITH FRIENDS. PT DENIES PAIN, N/V AT THIS TIME. CALL LIGHT WITHIN REACH.
--- NOTE | 2018-09-26 16:38 | NUR ---
REPORTED TO DR. PERES, ALK PHOS 590, AMMONIA 292. NO NEW ORDERS AT THIS TIME.
[2018-09-26 16:45] VITALS: BP 133/75
--- NOTE | 2018-09-26 16:55 | NUR ---
LACTULOSE GIVEN FOR AMMONIA LEVEL OF 292. PT DENIES PAIN AND DISCOMFORT. FLUIDS ENCOURAGED. CALL LIGHT WITHIN REACH.
--- NOTE | 2018-09-26 17:43 | NUR ---
REPORTED TO DR. OWUSU THAT MRI ERCP CAN NOT BE DONE [facility] UNTIL 09/29/18. DR. OWUSU STATED IF THE PROCEDURE CAN NOT BE DONE THIS WEEKEND HE WILL PROCEED WITH A DIFFERENT PROCEDURE ON SATURDAY AND A ERCP WILL NOT BE DONE. [facility] MACHINE HELPER MADE AWARE.
--- NOTE | 2018-09-26 18:36 | NUR ---
PT IS AAOX4. FLAVIO. STATES SHE HAS ABDOMINAL PAIN, 5 BUT IT WILL. REFUSED PAIN MEDICATION AT THIS TIME. TELE [address] READING SINUS IRVIN, HR 59BPM. PT DEINES CHEST PAIN AND SYNCOPE. IV CATH TO RH IS PATENT. NO S/S OF INFECTION OR INFILTRATION NOTED. CALL LIGHT WITHIN REACH. BED IN LOWEST POSITION. WILL ENDORSE ALL CARE TO NOC RN.
--- NOTE | 2018-09-26 19:15 | NUR ---
RECEIVED PT IN BED RESTING. AAOX4.BREATHING EVEN AND UNLABORED.NO C/O PAIN AT THIS TIME.PT STATED SHE HAD A LOOSE STOOL DUE TO LACTULOSE.IV SITE PATENT AND INTACT. BED IN LOWEST POSITION,CALL,LIGHT WITHIN REACH. WILL CONTINUE TO MONITOR.
[2018-09-26 20:54] VITALS: BP 130/69
--- NOTE | 2018-09-27 04:57 | NUR ---
PT C/O SEVERE ITCHINESS. MEDICATED BENADRYL PO ORDERED.WILL CONTINUE TO MONITOR.
--- NOTE | 2018-09-27 05:19 | NUR ---
PT ASLEEP.NO DISTRESS NOTED.NO S/S OF PAIN.BED IN LOWEST POSITION,CALL LIGHT WITHIN REACH. WILL CONTINUE TO MONITOR.
[2018-09-27 05:46] VITALS: BP 137/55
[2018-09-27 07:07] LABS: BASOPHIL % 0.6 % (0-2); CALCIUM 8.9 mg/dL (8.5-10.1); CARBON DIOXIDE 25.4 mmol/L (21-32); CHLORIDE SERUM 106 mmol/L (98-107); CREATININE SERUM 0.9 mg/dL (0.6-1.0); GFR1 > 60 mL/min; GLUCOSE SERUM 148 mg/dL (74-106); PLATELET COUNT 251 x10^3mcL (130-400); POTASSIUM SERUM 3.6 mmol/L (3.5-5.1); SODIUM SERUM 141 mmol/L (136-145)
--- NOTE | 2018-09-27 07:14 | NUR ---
CARE ENDORSED TO DAY NURSE GER.
[2018-09-27 07:40] LABS: BILIRUBIN DIRECT 3.21 mg/dL (0.0-0.2); BILIRUBIN TOTAL 3.9 mg/dL (0.20-1.00)
[2018-09-27 07:41] LABS: ALBUMIN 3.2 g/dL (3.4-5.0)
--- NOTE | 2018-09-27 07:45 | NUR ---
PT IS AAOX4. GROGGY. MILD SLUR TO SPEECH. DENIES H/A OR DIZZINESS. RESP EVEN AND UNLABORED. LUNG SOUNDS CTA. ON R/A. TELE [address] READING NSR. ABDOMEN ROUND, DISTENDED, NONTENDER. BOWEL SOUNDS ACTIVE. SKIN CDI. PERIPHERAL PULSES PALPABLE. NO EDEMA NOTED. IVF RUNNNIG TO RH, SITE IS PATENT WITH NO S/S OF INFECTION OR INFILTRATION. CALL LIGHT WITHIN REACH. BED ALARM ON. BED IN LOWEST POSITION.
[2018-09-27 08:39] VITALS: BP 144/72
--- NOTE | 2018-09-27 08:56 | NUR ---
DUE MEDS GIVEN. PT HAS C/O LEFT EYE SORENESS/REDNESS. WILL REPORT TO DR. PERES. PT STATES PAIN IS TOLERABLE AT THIS. CALL LIGHT WITHIN REACH.
[2018-09-27 12:14] VITALS: BP 127/78
--- NOTE | 2018-09-27 12:36 | NUR ---
PT IS SITTING UP AT BEDSIDE EATING LUNCH. RESP EVEN AND UNLABORED. NO DISTRESS NOTED. CALL LIGHT WITHIN REACH.
--- NOTE | 2018-09-27 14:57 | NUR ---
REVIEW DISCHARGE INSTRUCTIONS WITH. ALL FORMS SIGNED. RX GIVEN TO PT. ALL QUESTIONS ANSWERED. NO DISTRESS NOTED. CALL LIGHT WITHIN REACH.
--- NOTE | 2018-09-27 16:00 | NUR ---
LAB REPORTED PT'S HAS ESBL MDRO IN BLOOD. DR. BOB AND DR. MELO MADE AWARE. DR. MELO STATED HE WILL COME AND SEE PATIENT. PATIENT MADE AWARE.
[2018-09-27 16:40] VITALS: BP 125/78
--- NOTE | 2018-09-27 16:54 | NUR ---
BS TAKEN NO INSULIN COVERAGE NEEDED. PT DENIES PAIN OR DISCOMFORT. DAUGHTER AT BEDSIDE. CALL LIGHT WITHIN REACH.
--- NOTE | 2018-09-27 18:24 | NUR ---
PT IS AAOX4. RESP EVEN AND UNLABORED. PT STATES SHE HAS ABDOMINAL PAIN 5/10 BUT REFUSES PAIN MEDICATION. IV CATH TO RH PATENT WITH NO S/S OF INFECTION AND INFILTRATION. BED IN LOW POSITION. CALL LIGHT WITHIN REACH. WILL ENDORSE ALL CARE TO NOC SHIFT RN.
--- NOTE | 2018-09-27 18:56 | NUR ---
RECEIVED ORDER FROM LITO ORELLANA NP. D/C CLEAR LIQUID DIET. NEW ORDER: CLEAR LIQUID DIET CCHO. ORDER NOTED AND CARRIED OUT. PATIENT MADE AWARE.
[2018-09-27 21:09] VITALS: BP 126/67
--- NOTE | 2018-09-27 21:17 | NUR ---
PT RECIEVED AAO REG RESP NO SOB IV INFUSING WELL WITH TH SITE PATENT AND INTACT,PT ON TELE MONITOE AND IN NSR NO ECTOPY OR CHEST PAIN AT THIS TIME PT WITH C/O OF GENERALISE ABDO PAIN ARCHING IN NATURE AT THE SCALE OF 6/10.PT WAS MEDICATED WITH TRAMADOL 50 MG PO ORDER AND WILL CONTINUE TO MONITOR CALL LIGHT EASY REACHED AND WILL CONTINUE TO MONITOR.
[2018-09-28 05:48] VITALS: BP 102/46
--- NOTE | 2018-09-28 06:23 | NUR ---
PT HAD A RESTING NIGHT NO CHANGE AT THIS TIME,WILL CONTINUE TO MONITOR.
[2018-09-28 07:13] LABS: CALCIUM 9.1 mg/dL (8.5-10.1); CHLORIDE SERUM 103 mmol/L (98-107); GFR1 > 60 mL/min; GLUCOSE SERUM 122 mg/dL (74-106); MAGNESIUM 2.2 mg/dL (1.8-2.4); PHOSPHOROUS 4.4 mg/dL (2.5-4.9); POTASSIUM SERUM 3.5 mmol/L (3.5-5.1); SODIUM SERUM 138 mmol/L (136-145)
[2018-09-28 07:18] LABS: BASOPHIL % 0.5 % (0-2); PLATELET COUNT 251 x10^3mcL (130-400)
[2018-09-28 07:26] LABS: RED CELL DISTRIBUTION WIDTH 15.4 % (11.5-14.5)
--- NOTE | 2018-09-28 07:30 | NUR ---
PT IS AAOX4. RESP EVEN AND UNLABORED. LUNG SOUNDS CTA. ON R/A. TELE [address] READING NSR. ABDOMEN SOFT, NONTENDER, DISTENDED. BOWEL SOUNDS ACTIVE. SKIN CDI. NO EMEMA NOTED. PERIPHERAL PULSES PALPABLE. IVF RUNNING TO RH HAND, PATENT, WITH NO S/S OF INFECTION OR INFILTRATION. PT DENIES PAIN AT THIS TIME. CALL LIGHT WITHIN REACH. BED IN LOWEST POSITION.
--- NOTE | 2018-09-28 08:42 | NUR ---
DUE MEDS GIVEN. PT DENIES PAIN OR DISCOMFORT. RESP EVEN AND UNLABORED. NO DISTRESS NOTED. CALL LIGHT WITHIN REACH.
[2018-09-28 09:54] VITALS: BP 139/80
[2018-09-28 12:37] VITALS: BP 147/87
--- NOTE | 2018-09-28 13:54 | NUR ---
DUE MEDS GIVEN AND TOLERATED WELL. PT IS SITTING UP IN BED EATING LUNCH. DENIES NAUSEA OR PAIN AT THIS TIME. FLUIDS ENCOURAGED. PT TAUGHT TO MOVE AND REPOSITION IN BED. CALL LIGHT WITHIN REACH.
--- NOTE | 2018-09-28 15:39 | NUR ---
PT HAD A 20 SECOND RUN OR BIGEMINY. REPORTED TO LITO ORELLANA NP. RECEIVED ORDER FOR STAT EKG AND AMMONIA LEVEL. ORDERS NOTED AND CARRIED OUT.
--- NOTE | 2018-09-28 16:42 | NUR ---
FIELD TRAFFIC INVESTIGATOR IN ROOM TAKING BLOOD DRAW FOR AMMONIA LEVEL. B/S TAKEN NO INSULIN NEEDED. RESP EVEN AND UNLABORED. NO DISTRESS NOTED. PT DENIES CHEST PAIN OR PRESSURE OR ANY DISCOMFORT AT THIS TIME. DM2 TEACHING GIVEN. PT TAUGHT TO CONSUME A DIET HIGH IN FIBER, NO CANDY. PT VERBLIZED UNDERSTANDING. CALL LIGHT WITHIN REACH.
[2018-09-28 18:21] VITALS: BP 156/74
--- NOTE | 2018-09-28 18:30 | NUR ---
ULTRAM PO GIVEN FOR L EYE PAIN. COLD COMPRESS APPLIED. RESP EVEN AND UNLABORED. NO RESP DISTRESS NOTED. PT DENIES ABDOMINAL PAIN AT THIS TIME. TELE [address] READING SINUS IRVIN. IV CATH TO RH PATENT WITH NO S/S OF INFECTION NOTED. CALL LIGHT WITHIN REACH. BED IN LOWEST POSITION. WILL ENDORSE ALL CARE TO NOC ROBE.
--- NOTE | 2018-09-28 19:40 | NUR ---
RECEIVED PT AOX4 ABLE TO RESPOND TO COMMANDS, MAKE NEEDS KNOWN. SPEECH CLEAR, NO REPORTED HUNT, NO FACIAL DROOP. EYES PERRLA, BRISK RESPONSE.LEFT EYE REDNESS/DISCOMFORT NOTED, NO DRAINAGE. TRACHEA MIDLINE. LUNG SOUNDS CTAB, CHEST RISE/FALL SYMMETRIC, E/U BREATHING NOTED. NO ACUTE RESP DISTRESS OR SOB.S1/S2 SOUNDS HEARD, CHEST WALL STABLE, NO S/S OR REPORT OF CHEST PAIN. SKIN COLOR CONSISTENT WITH ETHNICITY, CAP REFILL <3 SECONDS, PULSES MODERATE X4, NO EDEMA. NS @ 100 ML/HR. NPO AT MIDNIGHT, PT INSTRUCTED ON PROCEDURE IN AM, PT VERBALIZES UNDERSTANDING. NO S/S OF N/V, PT DENIES.ACTIVE BOWEL SOUNDS X4, ABD SOFT/ROUND. NO GI COMPLAINTS AT THIS TIME WHEN ASKED.PT ABLE TO VOID FREELY, NO COMPLAINTS.SKIN WARM/DRY TO TOUCH, SKIN INTACT. IV TO RIGHT HAND, PORT PATENT, NO S/S OF INFILTRATION, DRESSING CDI, INFUSING. TEACHING PROVIDED, HOB ELEVATED 45 DEGREES PER PT COMFORT, BED AT LOWEST SETTING, WILL CONT TO MONITOR.
[2018-09-28 21:23] VITALS: BP 134/63
--- NOTE | 2018-09-29 01:29 | NUR ---
UPON ENTERING ROOM PT SLEEPING, EASILY AROUSABLE, NO ACUTE RESP DISTRESS. NS REMAINS INFUSING @ 100 ML/HR TO RIGHT HAND, NO S/S OF INFILTRATION.
--- NOTE | 2018-09-29 06:50 | NUR ---
PT SLEEPING BUT EASILY AROUSALBE AT THIS TIME. PT IN NO ACUTE RESP DISTRESS, DENIES SOB OR ANY PAIN WHEN ASKED. PT REPORTS WANTING TO GET BETTER AND GET OUT OF THE HOSPITAL, EDUCATION PROVIDED ON POC. RIGHT HAND 20 G, INFUSING NS @ 100 ML/HR, NO S/S OF INFILTRATION, DRESSING CDI.
[2018-09-29 06:54] LABS: BASOPHIL % 0.2 % (0-2); PLATELET COUNT 272 x10^3mcL (130-400)
--- NOTE | 2018-09-29 07:00 | NUR ---
SPOKE WITH MIRA NAGEL FROM OR, GAVE REPORT ON PT'S STATUS.
--- NOTE | 2018-09-29 07:05 | NUR ---
GAVE REPORT TO DARIA NAGEL. UPDATES GIVEN, QUESTIONS ANSWERED.
[2018-09-29 07:08] VITALS: BP 142/80
[2018-09-29 07:15] LABS: CARBON DIOXIDE 21.6 mmol/L (21-32); CHLORIDE SERUM 103 mmol/L (98-107); CREATININE SERUM 0.8 mg/dL (0.6-1.0); GFR1 > 60 mL/min; GLUCOSE SERUM 124 mg/dL (74-106); MAGNESIUM 2.1 mg/dL (1.8-2.4); PHOSPHOROUS 3.5 mg/dL (2.5-4.9); POTASSIUM SERUM 3.6 mmol/L (3.5-5.1); SODIUM SERUM 138 mmol/L (136-145)
--- NOTE | 2018-09-29 08:00 | NUR ---
SHIFT ASSESSMENT DONE. PATIENT A/A/OX4; SPEECH CLEAER. TELE#10, SR; HR,65; DENIED CHEST PAIN. BREATHING SOUND CLEAR HARRY. O2 SAT 96% ON RA. ABD ROUND/SOFT. BOWEL SOUND ACTIVE. NPO FOR ERCP THIS AM. NO N/V. C/O ABD PAIN ON 10/15. CONTINUE MONITOR. HAD LOOSE BM X1 THIS AM. AMBULATORY. IVF OF NS 100CC/HR.IV SITE TO R HAND INTACT. SX CONSENT SIGNED. CALL LIGHT IN REACH.
--- NOTE | 2018-09-29 08:33 | NUR ---
PATIENT WENT TO OR.
[2018-09-29 09:57] LABS: BILIRUBIN DIRECT 2.76 mg/dL (0.0-0.2); BILIRUBIN TOTAL 3.5 mg/dL (0.20-1.00); TOTAL PROTEIN, SERUM 7.4 g/dL (6.4-8.2)
--- NOTE | 2018-09-29 10:25 | NUR ---
P.T. NOTES UNABLE TO SEE PATIENT FOR P.T., PER NURSING PATIENT IS IN OR.
--- NOTE | 2018-09-29 10:55 | NUR ---
BACK TO ROOM AFTER ERCP DONE. PATIENT A/A/OX3; V/S WNL. DENIED PAIN. IVF OF NS 40CC/HR. ICE CHIPS GIVEN. NO N/V. CONTINUE MONITOR.
[2018-09-29 12:33] VITALS: BP 132/73
[2018-09-29 17:21] VITALS: BP 117/66
--- NOTE | 2018-09-29 17:51 | NUR ---
TOLERATED FULL LIQUID DIET. NO N/V. DENEID ABD PAIN. URIN EINCONT AT TIMES. IVF OF NS 40CC/HR. USE CANE TO WALK. CALL LIGHT IN REACH. ENDORSED CARE TO NOC NURSE.
--- NOTE | 2018-09-29 19:20 | NUR ---
RECEIVED PT IN BED RESTING QUIETLY. SHE IS ALERT,ORIENTED X4. LUNG SOUNDS CLEAR. NO SOB ON ROOM AIR. BOWEL SOUNDS ACTIVE. SHE HAS NO C/O ABDL PAIN AT THIS TIME. NO C/O N/V. W/ IVF NS AT 40 CC/HR VIA RT HAND. CALL LIGHT W/IN REACH.
[2018-09-29 21:10] VITALS: BP 108/52
--- NOTE | 2018-09-30 00:19 | NUR ---
PT AWAKE AND WATCHING TV. DENIES PAIN AT THIS TIME.
--- NOTE | 2018-09-30 05:17 | NUR ---
PT SLEPT THROUGH THE NIGHT. SHE HAD NO C/O PAIN. NO EPISODE OF N/V. SHE AMBULATES USING A CANE. IVF NS INFUSING AT 40 CC/HR VIA RT HAND. ALL NEEDS ATTENDED TO.
[2018-09-30 05:42] VITALS: BP 91/53
[2018-09-30 06:40] VITALS: BP 124/78
--- NOTE | 2018-09-30 07:50 | NUR ---
RECEIVED PATIENT FROM TRAY PACKER NURSE. PATIENT IS RESTING IN BED COMFORTABLY. IV CDI. BED RAILS UP X2, BED IN LOW POSITION. RESPIRATIONS EVEN NO ACUTE RESPIRATORY DISTRESS NOTED. CIRCULATION INTACT CAP REFIL LESS THAN 3 SECONDS. ALL QUESTIONS AND CONCERNS ADDRESSED, SAFETY PRECAUTIONS MAINTAINED.
--- NOTE | 2018-09-30 08:10 | NUR ---
PHYSICAL THERAPY DAILY NOTES CO-SIGN All documentation done by the Load Out Worker for 09/30/18 has been reviewed. I agree with the documentation. Reviewed/Co-Signed by: Flaquita Henao PT Documentation Done by:TAHMINA JACKSON TEACHER DRAMATICS CO-SIGNED FOR THE DATE 09/27/18
--- NOTE | 2018-09-30 08:20 | NUR ---
PHYSICAL THERAPY DAILY NOTES CO-SIGN All documentation done by the Sieve Grader Tender for 09/30/18 has been reviewed. I agree with the documentation. Reviewed/Co-Signed by: Flaquita Henao PT Documentation Done by:TAHMINA JACKSON IP PARALEGAL CO-SIGNED FOR THE DATE 09/29/18
[2018-09-30 10:40] VITALS: BP 133/71
--- NOTE | 2018-09-30 13:11 | NUR ---
PATIENT AMBULATED TO RESTROOM WITH CANE IN RIGHT HAND. SHE TOLORATED WELL. SHE IS BACK IN BED RESTING COMFORTABLY. IV CDI, BED RAILS UP X2, BED IN LOW POSITION. ALL QUESTIONS AND CONCERNS ADDRESSED. SAFTEY PRECAUTIONS MAINTAINED.
--- NOTE | 2018-09-30 16:11 | NUR ---
PATIENT WAS COMPLAINING OF PAIN IN OUTER CORNER OF BOTH EYES RATED 8/10. WAS GIVEN MEDICATION (SEE EMAR) FOR PAIN. PATIENT TOLORATED MEDICATION ADMINISTRATION WELL. RESPIRATIONS EVEN, NO RESPIRATORY DISTRESS NOTED. BED AT LOW POSITION, BED RAILS UP X2, CALL LIGHT WITHIN REACH ALL QUESTIONS AND CONCERNS ADDRESSED. SAFETY PRECAUTIONS MAINTAINED.
[2018-09-30 18:10] VITALS: BP 117/61
--- NOTE | 2018-09-30 18:18 | NUR ---
PATIENT SITTING UP IN BED EATING DINNER COMFORTABLY TOLORATING WELL. NO RESPIRATORY DISTRESS NOTED. IV IN RIGHT HAND INFUSING WELL NO REDNESS NOTED PATIENT DENIES PAIN AT IV SITE. PATIENT WAS COMPLAING OF PAIN IN OUTER CORNER OF EYES, WAS MEDICATED (SEE EMAR). PER PATIENT MEDICATION WAS EFFECTIVE FOR PAIN. HEAD OF THE BED ELEVATED, BED IN LOW POSITION, BED RAILS UP X2. ALL QUESTIONS AND CONCERNS ADDRESSED, SAFETY PRECAUTIONS MAINTAINED. NO ACUTE CHANGES NOTED PATIENT IS A/A/O X4. WILL ENDORSE CARE TO BOAT ENGINES INSTALLER NURSE.
--- NOTE | 2018-09-30 19:15 | NUR ---
RECEIVED PT IN BED RESTING QUIETLY. SHE IS ALERT,ORIENTED X4 W/ CLEAR SPEECH. LUNGS CTA. NO SOB ON ROOM AIR. BOWEL SOUNDS ACTIVE. SHE HAS NO C/O ABDL PAIN. NO N/V. PT STATED SHE HAS MILD PAIN AND BLURRY VISION ON BOTH EYES. ALSO STATED SHE FEELS HER EYES ARE WATERY. NOTED W/ REDNESS ON BILAT EYES. ADVISED PT THAT RESIDENT WILL BE NOTIFIED. IVF NS INFUSING AT 40 CC/HR VIA RT HAND. CALL LIGHT W/IN REACH.
[2018-09-30 21:25] VITALS: BP 130/59
--- NOTE | 2018-09-30 21:58 | NUR ---
INFORMED DR. MARTINS THAT PT IS C/O PAIN AND BLURRY VISION ON BOTH EYES. INFORMED HER THAT PT'S EYES W/ REDNESS NOTED.
--- NOTE | 2018-09-30 22:10 | NUR ---
PT SEEN BY DR. MARTINS FOR HER COMPLAIN OF PAIN AND BLURRY VISION ON BOTH EYES.
--- NOTE | 2018-10-01 05:19 | NUR ---
PT SLEPT AT LONG INTERVALS. SHE HAD NO C/O PAIN. SHE IS TOLERATING REGULAR DIET. NO N/V. NO BM NOTED THIS SHIFT. HL TO RT HAND INTACT AND PATENT. ALL NEEDS ATTENDED TO.
[2018-10-01 05:48] VITALS: BP 125/60
--- NOTE | 2018-10-01 07:40 | NUR ---
DUE MEDS GIVEN. FLUIDS ENCOURAGED. CALL LIGHT WITHIN REACH. DENIES DISTRESS OR PAIN AT THIS TIME.
--- NOTE | 2018-10-01 07:40 | NUR ---
PT IS AAOX4. NORMAL S1S2 NOTED. RESP EVEN AND UNLABORED. LUNG SOUNDS CTA. ON R/A. ABDOMEN SOFT, ROUND, AND NONDISTENDED. BOWEL SOUNDS ACTIVE. SKIN CDI. NO EMEMA NOTED. PT DENIES PAIN OR DISCOMFORT. CALL LIGHT WITHIN REACH.
--- NOTE | 2018-10-01 09:18 | NUR ---
ULTRAM GIVEN FOR H/A. FLUIDS ENCOURAGED. PT MOVED AND REPOSITIONED FOR COMFORT. CALL LIGHT WITHIN REACH.
--- NOTE | 2018-10-01 09:40 | NUR ---
DUE MEDS GIVEN. FLUIDS ENCOURAGED. CALL LIGHT WITHIN REACH. DENIES DISTRESS OR PAIN AT THIS TIME.
[2018-10-01 09:45] VITALS: BP 144/78
[2018-10-01 10:01] LABS: ALBUMIN 3.4 g/dL (3.4-5.0); BILIRUBIN DIRECT 0.58 mg/dL (0.0-0.2); BILIRUBIN TOTAL 0.9 mg/dL (0.20-1.00); TOTAL PROTEIN, SERUM 8.2 g/dL (6.4-8.2)
[2018-10-01] MEDS ORDERED: AUG500 PO (11:00)
[2018-10-01] MEDS ORDERED: LACTULOSE20 GM/30 M PO (11:01)
--- NOTE | 2018-10-01 12:11 | NUR ---
BLOOD SUGAR TAKEN NO INSULIN GIVEN. PT CALM AND REPORTS PAIN IS 3/10, STATES NO PAIN MED NEEDED AT THIS TIME. PT ASSISTED WITH CALLING DAUGHTER. TURNED AND REPOSITIONED FOR COMFORT. CALL LIGHT WITHIN REACH.
[2018-10-01 12:12] VITALS: BP 144/78
--- NOTE | 2018-10-01 16:23 | NUR ---
PATIENT REFUSED PHYSICAL THERAPY SESSIONS SECONDARY TO VISUAL PROBLEMS, TO BE SEEN FOR FOLLOW UPS
--- NOTE | 2018-10-01 17:10 | NUR ---
BLOOD SUGAR 170, 3 UNITS INSULIN GIVEN. PT DENIES PAIN OR DISCOMFORT AT THIS TIME. NO DISTRESS NOTED. CALL LIGHT WITHIN REACH.
--- NOTE | 2018-10-01 18:10 | NUR ---
PT DISCHARGED TO HOME IN NO DISTRESS. DISCHARGE ORDERS REVIEWED. RX GIVEN TO PT. IV CATH TO RH REMOVED INTACT. SITE WNL. VS: 98.2, 49, 18, 144/78, 96% ON R/A. PT DENIES PAIN OR DISCOMFORT AT TIME OF DC. ALL PERSONAL BELONGINGS TAKEN HOME.
== END 2018-10-01 18:05 | disposition home or self-care (01) ==
LOC: ED 01:10 → DU 04:21 → MU 04:21 → DU 05:13 → MU 09-29 10:23
PROVIDERS: Emergency Medicine; Internal Medicine Gastroenterology; ADMIT Internal Medicine
PROC: 0FC98ZZ Extirpation of Matter from Common Bile Duct, Via Natural or Artificial Opening Endoscopic (ICD-10-PCS; principal; 2018-09-29 09:00)
PROC: BF101ZZ Fluoroscopy of Bile Ducts using Low Osmolar Contrast (ICD-10-PCS; 2018-09-29 09:00)
PROC: 0DB68ZX Excision of Stomach, Via Natural or Artificial Opening Endoscopic, Diagnostic (ICD-10-PCS; 2018-09-29 09:00)
DX: K80.50 Calculus of bile duct without cholangitis or cholecystitis without obstruction (principal); E11.65 Type 2 diabetes mellitus with hyperglycemia; K76.0 Fatty (change of) liver, not elsewhere classified; B19.9 Unspecified viral hepatitis without hepatic coma; Z68.41 Body mass index [BMI] 40.0-44.9, adult; M94.0 Chondrocostal junction syndrome [Tietze]; E78.5 Hyperlipidemia, unspecified; I10 Essential (primary) hypertension; G89.29 Other chronic pain; M54.9 Dorsalgia, unspecified; F41.9 Anxiety disorder, unspecified; F32.9 Major depressive disorder, single episode, unspecified; F17.210 Nicotine dependence, cigarettes, uncomplicated; R29.6 Repeated falls; Z79.84 Long term (current) use of oral hypoglycemic drugs; E78.00 Pure hypercholesterolemia, unspecified; Z98.51 Tubal ligation status; Z90.49 Acquired absence of other specified parts of digestive tract
CPT/HCPCS: 43262; 82962; 97110-GP; 97116-GP; C1769; G0480; J1610; J1815; J2250; J2270; J2405; J2543; J3010; J3490; J7030; Q0092; Q0163; Q9967

== ENCOUNTER 2018-11-10 18:31 | Emergency (ER) | payer OTHER ==
[~2018-11-10 18:31] MED LIST changes: +AUG500 PO; +GABAPENTIN100 M2; +LACTULOSE20 GM/30 M PO; +NAPROXEN375 MG; +NORCO1 TA2
[2018-11-10 18:35] VITALS: Ht 160 cm
[2018-11-10 20:20] LABS: BASOPHIL % 0.4 % (0-2); PLATELET COUNT 295 x10^3mcL (130-400); RED CELL DISTRIBUTION WIDTH 14.3 % (11.5-14.5)
[2018-11-10 20:39] LABS: CALCIUM 8.9 mg/dL (8.5-10.1); CARBON DIOXIDE 26.7 mmol/L (21-32); CREATININE SERUM 1.1 mg/dL (0.6-1.0); POTASSIUM SERUM 4.3 mmol/L (3.5-5.1)
[2018-11-10 20:43] LABS: ALBUMIN 3.8 g/dL (3.4-5.0); BILIRUBIN TOTAL 0.34 mg/dL (0.20-1.00); TOTAL PROTEIN, SERUM 7.8 g/dL (6.4-8.2)
[2018-11-10 20:52] LABS: AMPHETAMINE QUAL UR NONE DETECTED (See below)
[2018-11-11 00:27] VITALS: BP 99/53
== END 2018-11-11 00:20 | disposition home or self-care (01) ==
LOC: ED 18:31
PROVIDERS: Emergency Medicine
DX: R51 Headache (principal); R42 Dizziness and giddiness; M54.6 Pain in thoracic spine; R06.02 Shortness of breath; R11.2 Nausea with vomiting, unspecified
CPT/HCPCS: G0480; J1885

== ENCOUNTER 2018-11-22 02:27 | Emergency (ER) | payer OTHER ==
[~2018-11-22] VITALS: Ht 160 cm; Wt 90.7 kg
[2018-11-22 02:28] VITALS: Ht 160 cm; Wt 90.7 kg
[2018-11-22 02:52] VITALS: BP 132/78
== END 2018-11-22 02:52 | disposition left against medical advice (07) ==
LOC: ED 02:27
DX: F41.9 Anxiety disorder, unspecified (principal); I10 Essential (primary) hypertension; E11.9 Type 2 diabetes mellitus without complications; F32.9 Major depressive disorder, single episode, unspecified; E78.00 Pure hypercholesterolemia, unspecified; Z98.51 Tubal ligation status

== ENCOUNTER 2019-03-20 15:05 | Inpatient (IN) | payer OTHER ==
[~2019-03-20] VITALS: Ht 162.6 cm; Wt 104.3 kg
[2019-03-20 15:09] VITALS: Ht 162.6 cm; Wt 104.3 kg
--- NOTE | 2019-03-20 15:17 | NUR ---
PATIENT A/O X 3 WAS BIB [facility] AFTER HAVING AN ALTERED EPISODE WHILE [employer]. PT DENIES HAVING AN EPISODE LIKE THIS BEFORE. PT WAS CONFUSED BUT NOW ANSWERING QUESTIONS APPROPRIATELY. BREATHING E/U, SKIN WARM, DRY AND INTACT. PT STS SHE IS SEEING A NEUROLOGIST FOR SLEEP STUDIES, PT HX OF DEPRESSION AND ANXIETY. PATIENT PLACED ON ALL MONITORS FOR FURTHER OBSERVATIONS. WILL CONTINUE TO MONITOR.
--- NOTE | 2019-03-20 15:54 | NUR ---
PT'S CARE ASSUMED AT THIS TIME. PT AWAKE AND ALERT TO SELF AND PLACE. UNABLE TO RECALL ALTERED EVENT AT [employer]. PT STS SHE WENT TO GET SON AND NOW SHE IS HERE IN THE HOSPITAL. C/O OF HEADACHE PAIN. DENIES ALL OTHER C/O AT THIS TIME. [id number] AT BEDSIDE. DENIES HX OF SIMILAR EPISODES. PT SPEAKS IN FULL CLEAR SENTENCES. ON [employer]OL [employer] LIB[employer]IAN/POX. WILL CONTINUE TO MONITOR.
[2019-03-20] MEDS ORDERED: ZESTRIL5 MG PO (16:35)
[2019-03-20] MEDS ORDERED: IBUPROFEN400 MG PO (16:36)
[2019-03-20] MEDS ORDERED: ABILIFY5 M1 PO (16:36)
--- NOTE | 2019-03-20 16:37 | NUR ---
DR ATKINSON, ERP, AWARE OF PT'S C/O AND AT BEDSIDE.
--- NOTE | 2019-03-20 16:50 | NUR ---
X-RAY DONE AT BEDSIDE.
--- NOTE | 2019-03-20 16:51 | NUR ---
EKG IN PROGRESS.
[2019-03-20 17:16] LABS: BASOPHIL % 0.7 % (0-2); PLATELET COUNT 284 x10^3mcL (130-400); RED CELL DISTRIBUTION WIDTH 14.2 % (11.5-14.5)
[2019-03-20 17:25] LABS: CALCIUM 8.6 mg/dL (8.5-10.1); CHLORIDE SERUM 107 mmol/L (98-107); CREATININE SERUM 0.8 mg/dL (0.6-1.0); GFR1 > 60 mL/min; GLUCOSE SERUM 91 mg/dL (74-106); SODIUM SERUM 143 mmol/L (136-145)
[2019-03-20 17:29] LABS: ALBUMIN 3.6 g/dL (3.4-5.0); ALKALINE PHOSPHATASE 93 U/L (46-116); ALT/SGPT 65 U/L (14-59); AST/SGOT 48 U/L (15-37); BILIRUBIN TOTAL 0.6 mg/dL (0.20-1.00); CHOLESTEROL 181 mg/dL (<200); HDL CHOLESTEROL 45 mg/dL (40-60); MAGNESIUM 2.6 mg/dL (1.8-2.4); TOTAL PROTEIN, SERUM 8.2 g/dL (6.4-8.2)
[2019-03-20 17:48] LABS: T3 TOTAL 1.01 ng/mL
[2019-03-20 17:49] LABS: FREE T4 1.18 ng/dL (0.76-1.46); FREE THYROXINE INDEX 2.7 ug/dL (1.4-4.5); T4(THYROXINE) 8.3 ug/dL (4.7-13.3)
--- NOTE | 2019-03-20 18:16 | NUR ---
PT REQUESTING PAIN MEDS. PT AWARE NO MED ORDERS AT THIS TIME. ERP TO EVAL CT PRIOR TO MED ORDERS. PT AGREED AND VERBALIZED UNDERSTANDING.
--- NOTE | 2019-03-20 19:10 | NUR ---
REPORT RECEIVED FROM LU NAGEL
--- NOTE | 2019-03-20 19:12 | NUR ---
REPORT GIVEN TO JUANITA RN. OPPORTUNITY GIVEN TO ASK QUESTIONS. PT'S CARE COMPLETED BY THIS RN AT THIS TIME.
--- NOTE | 2019-03-20 19:12 | NUR ---
PT AMBULATED WITH STEADY GAIT USING PERSONAL CANE AND [id number] AT SIDE TO PREVENT FALL TO BR AND BACK TO BED. PT GIVEN URINE CUP.
--- NOTE | 2019-03-20 19:32 | NUR ---
PT AXOX4. PT SPEAKING IN CLEAR AND FULL SENTENCES. PT ON PHONE WITH SON. DAUGHTER AT BEDSIDE. NAD AT THIS TIME.
--- NOTE | 2019-03-20 19:34 | NUR ---
TELE PSYCH MONITOR IN PLACE AT THIS TIME
[2019-03-20 19:36] LABS: UA SPECIFIC GRAVITY >=1.030 (1.005-1.035); microscopic required? YES; urine erythrocyte NEGATIVE (NEGATIVE)
--- NOTE | 2019-03-20 19:45 | NUR ---
PT REQUESTING FOOD AT THIS TIME PT AWARE THAT WE WILL WAIT FOR REUSLTS FROM TELE/PSYCH CONSULTATION BEFORE PT WILL BE PROVIDED WITH FOOD
[2019-03-20 19:48] LABS: AMPHETAMINE QUAL UR NONE DETECTED (See below)
--- NOTE | 2019-03-20 20:28 | NUR ---
NEUROLOGIST SPOKE WITH MD ATKINSON. MD ATKINSON WILL ORDER CT ANGIO FOR PT
--- NOTE | 2019-03-20 21:18 | NUR ---
2 UNSUCCESSFUL IV ATTEMPTS IN L AC
--- NOTE | 2019-03-20 21:34 | NUR ---
SHEILA BROWN AT BEDSIDE FOR IV INSERTION
--- NOTE | 2019-03-20 22:03 | NUR ---
SHEILA Cantor RN HAD SEVERAL UNSUCCESSFUL IV ATTEMPTS. MD ATKINSON MADE AWARE. MD ATKINSON STATES THAT HE WILL ATTEMPT ULTRASOUND IV INSERTION
--- NOTE | 2019-03-20 22:14 | NUR ---
MD ATKINSON AT BEDSIDE FOR ULTRASOUND IV INSERTION
[2019-03-20 22:34] LABS: CHOLESTEROL/HDL RATIO 3.8
--- NOTE | 2019-03-20 23:18 | NUR ---
PT PROVIDED ICE CHIPS AT THIS TIME FOR THIRST. MD ATKINSON STATES OKAY
--- NOTE | 2019-03-21 00:35 | NUR ---
PER MD CHINA PUGA TO GIVE PT FOOD. PT PROVIDED WITH TUNA SANDWHCIH, JELLO, AND SODA AT THIS TIME SON AT BEDSIDE
--- NOTE | 2019-03-21 02:09 | NUR ---
REPORT GIVEN TO BIENVENIDO NAGEL
--- NOTE | 2019-03-21 02:40 | NUR ---
RECIEVED PATIENT FROM ED VIA GURNEY ACCOMPANIED BY NURSE. PATIENT IS SNORING. AROUSABLE WITH TACTILE STIMULI. ABLE TO FOLLOW COMMANDS TO ROLL FROM GURNEY TO BED. WHEN ASKED WHAT HER FULL NAME WAS, PATIENT WAS ABLE TO RESPOND CORRECTLY. HOWEVER, PATIENT IS VERY LETHARGIC AND QUICK TO FALL BACK ASLEEP. UNABLE TO ASSESS ORIENTATION BECAUSE PATIENT ONLY ANSWERED THAT ONE QUESTION. PERRLA +3 BRISK. PATIENT HAD ATIVAN IN ED SHORTLY BEFORE COMING UP TO THE FLOOR. O2 SAT ON ROOM AIR IS 88%. 2L NC APPLIED, NOW SATTING 95%. PATIENT CONTINUES TO SNORE. ON TELE 10, SINUS IRVIN 52. 3 SIDE RAILS UP, BED ALARM ON. IV TO TATIANA INFUSING WITHOUT ERYTHEMA OR INFILTRATION. IV TO LH SALINE LOCKED. WILL CONTINUE TO MONITOR.
[2019-03-21 03:45] VITALS: BP 98/56
--- NOTE | 2019-03-21 05:45 | NUR ---
PATIENT IS EASIER TO AROUSE. PATIENT DOES NOT REMEBER HOW LONG SHE HAS BEEN IN THE HOSPITAL BUT DOES KNOW WHERE SHE IS AT. PATIENT DOES NOT KNOW THE DATE. ONLY ORIENTED TO NAME, BIRTHDAY, AND PLACE.
[2019-03-21 06:03] VITALS: BP 97/49
--- NOTE | 2019-03-21 06:05 | NUR ---
PATIENTS EYES ARE CLOSED AGAIN, SNORING. IV INFUSING WITHOUT COMPLICATION. CALL LIGHT WITHIN REACH. BED LOCKED AND IN LOWEST POSITION. BED ALARM ON. WILL ENDORSE CARE TO DAYSHIFT NURSE.
[2019-03-21 07:01] LABS: BASOPHIL % 0.4 % (0-2); PLATELET COUNT 229 x10^3mcL (130-400); RED CELL DISTRIBUTION WIDTH 14.3 % (11.5-14.5)
[2019-03-21 07:03] LABS: CALCIUM 8.2 mg/dL (8.5-10.1); CARBON DIOXIDE 24.1 mmol/L (21-32); CHLORIDE SERUM 109 mmol/L (98-107); CREATININE SERUM 0.9 mg/dL (0.6-1.0); GFR1 > 60 mL/min; GLUCOSE SERUM 131 mg/dL (74-106); POTASSIUM SERUM 3.5 mmol/L (3.5-5.1); SODIUM SERUM 143 mmol/L (136-145)
--- NOTE | 2019-03-21 07:41 | NUR ---
RC'D PT RESTING IN BED WITH NO APPARENT SIGNS OF DISTRES. A/A/O/X3, SPEECH CLEAR. PT DENIES HUNT/DIZZINESS. ON TELE, SINUS IRVIN. PT DENIES CP. PALP PULSES, NO EDEMA NTOED. RESPIRATIONS EQUALA ND UNLABORED. LUNGS DIM IN BASES. ON 2L O2 VIA NC, DENIES SOB. ABDOMEN ROUND AND NONTENDER. ACTIVE BS. DENIES N/V. PT VOIDS FREELY. GENERALIZED WEAKNESS. PT USES CANE TO AMBULATE. SKIN W/D/I. PT DENIES PAIN AT THIS TIME. IV PATENT AND INTACT. BED IN LOW POSITION. CALL LIGHT IN REACH. WILL CONT TO RYAN
--- NOTE | 2019-03-21 08:46 | NUR ---
PT RESTING IN BED WITH NO APPARENT SIGNS OF DISTRESS. RESPIRATIONS EQUAL AND UNLABORED. ON 2L O2 VIA NC, DENIES SOB. SPO2 100%. PT DENIES PAIN AT THIS TIME. BED IN LOW POSITION. CALL LIGHT IN REACH. WILL CONT TO MONITOR
[2019-03-21 08:56] VITALS: BP 120/48
--- NOTE | 2019-03-21 11:36 | NUR ---
PT RESTING IN BED WITH NO APPARENT SIGNS OF DISTRESS. RESPIRATIONS EQUAL AND UNLABROED. ON 2L O2 VIA NC, DENIES SOB. PT DENIES PAIN AT THIS TIME. BED IN LOW POSITION CALL LIGHT IN REACH. WILL CONT TO MONITOR
[2019-03-21 12:55] VITALS: BP 137/55
--- NOTE | 2019-03-21 16:28 | NUR ---
PT RESTING IN BED WITH NO APPARENT SIGNS OF DISTRESS. RESPIRATIONS EQUAL AND UNLABORED. ON RA, DENIES SOB. BED IN LOW POSITION. CALL LIGHT ION REACH. WILL CONT TO MONITOR
[2019-03-21 17:21] VITALS: BP 114/64
--- NOTE | 2019-03-21 18:24 | NUR ---
PT RESTING IN BED WITH NO APPARENT SIGNS OF DISTRESS. ON TELE, DENIES CP. RESPIRTIONS EQUAL AND UNLABORED. PT DENIES SOB. GENERALIZED WEAKNESS. PTUSES CANE TO AMB WITH ASSIST. NO ACUTE SKIN CHANGES NOTED. PT DENIES PAIN. IV PATENT AND INTACT. BED IN LOW POSITION. CALL LIGHT IN REACH. WILL ENDORSE TO GRAVEDIGGER RN
--- NOTE | 2019-03-21 19:40 | NUR ---
PT. AWAKE, ALERT, ORIENTED X3. SPEECH SLOW. PT. W/ EMOTIONAL CRYING, RANDOMLY. PT. APPEARS FORGETFUL . CONVERSATION SCATTERED AND SUBJECT SPORATICALLY CHANGING. ABLE TO FOLLOW COMMANDS. DENIES HEADCHE OR DIZZINESS. BREATH SOUNDS CLEAR THROUGHOUT LUNG AIKEN, DIMINSHED HARRY. RESP. EVEN, UNLABORED. NO SOB NOTED. PT.ON RA. SINUS IRVIN ON MONITOR. PEDAL PULSES STRONG TO BLE. NO EDEMA NOTED. SKIN APPEARS INTACT. ABD. SOFT AND ROUND, OBESE. BOWEL SOUNDS ACTIVE. DENIES ABD. PAIN, DENIES NAUSEA. IVF NS INFUSING AT 200CC/HR, SITE INTACT. CALL LIGHT WITHIN REACH.
[2019-03-21 20:40] VITALS: BP 122/76
--- NOTE | 2019-03-22 00:30 | NUR ---
PT. SLEEPING AT THIS TIME. SNORING. NO RESP. DISTRESS THUS FAR. NO COMPLAINTS. CALL LIGHT REMAINS WITHIN REACH. WILL CONTINUE TO MONITOR.
[2019-03-22 04:10] VITALS: BP 126/65
--- NOTE | 2019-03-22 06:21 | NUR ---
PT. SLEEPING AT THIS TIME. REPORTED DROP IN HEART RATE, 39 AND THEN 42, NON-SUSTAINED. IVF INFUSING WELL. CALL LIGHT WITHIN REACH. WILL ENDORSE PT. CARE TO INCOMING NURSE.
[2019-03-22 06:39] LABS: BASOPHIL % 0.3 % (0-2); PLATELET COUNT 241 x10^3mcL (130-400); RED CELL DISTRIBUTION WIDTH 14.2 % (11.5-14.5)
[2019-03-22 06:46] LABS: CALCIUM 8.3 mg/dL (8.5-10.1); CHLORIDE SERUM 109 mmol/L (98-107); CREATININE SERUM 0.8 mg/dL (0.6-1.0); GFR1 > 60 mL/min; GLUCOSE SERUM 109 mg/dL (74-106); MAGNESIUM 2.2 mg/dL (1.8-2.4); PHOSPHOROUS 3.6 mg/dL (2.5-4.9); POTASSIUM SERUM 3.9 mmol/L (3.5-5.1); SODIUM SERUM 144 mmol/L (136-145)
--- NOTE | 2019-03-22 07:04 | NUR ---
RECEIVED REPORT FROM NOE NAGEL. PATIENT SLEEPING COMFORTABLY IN BED WITH NO NEEDS IDENTIFIED. IV TO TATIANA IS PATENT AND INFUSING NS @ 100ML/HR. NO REDNESS OR PAIN. SALINE LOCK TO LT HAND IS PATENT AND INTACT. NO REDNESS OR PAIN. TELE # [address] NO INDICATION OF CHEST PAIN. PT ON ROOM AIR. NO DISTRESS NOTED. CANE AT BEDSIDE. ALL QUESTIONS AND CONCERNS ADDRESSED.
[2019-03-22 12:33] VITALS: BP 116/64
[2019-03-22 18:09] VITALS: BP 156/81
--- NOTE | 2019-03-22 19:24 | NUR ---
REPORT GIVEN TO NOE NAGEL. PATIENT RESTING COMFORTABLY IN BED. ALL NEEDS MET. ALL QUESTIONS AND CONCERNS ADDRESSED. ALL CARES ENDORSED.
--- NOTE | 2019-03-22 19:35 | NUR ---
PT. OUT OF ROOM, STATED THAT SHE WANTED TO WALK. BUT PT. IS ORIENTED TO SELF ONLY AND CONFUSED. GAIT ALSO UNSTEADY. PT. ASSISTED BACK TO BED. SHE WAS UNABLE TO RECOGNIZE HER OWN ROOM. PT. REORIENTED, MADE COMFORTABLE. PT. ENCOURAGED TO STAY IN ROOM UNTIL PT CAN EVAL HER. BED ALARM PLACED ON. FREQUENT ROUNDS PLANNED.
--- NOTE | 2019-03-22 19:52 | NUR ---
PT. AWAKE, ALERT, ORIENTED TO SELF. ABLE TO FOLLOW MOST COMMANDS. PT. CONFUSED. SPEECH SLURRED AND SLOW. NO FACIAL DROOPING NOTED. BUE MANAGER RESIDENTIAL STRONG. ABLE TO AMBULATE W/ CANE, GAIT SLIGHTLY UNSTEADY. DENIES DIZZINESS, DENIES BLURRED VISION. BREATH SOUNDS CLEAR THROUGHOUT LUNG AIKEN, RESP. EVEN, UNLABORED. NO SOB NOTED. BLL SLIGHTLY DIMINISHED. ABD. SOFT AND ROUND, BOWEL SOUNDS ACTIVE. PEDAL PULSES STRONG BLE. NO EDEMA NOTED. IV SITE X2 INTACT, HEPPLOCKED. CALL LIGHT WITHIN REACH.
[2019-03-22 20:48] VITALS: BP 120/61
[2019-03-23 04:44] VITALS: BP 118/57
--- NOTE | 2019-03-23 05:26 | NUR ---
PT. SLEPT WELL THROUGHOUT THE NIGHT. NO COMPLAINTS OF PAIN OR HEADACHE. IV SITE REMAINS INTACT X2. CALL LIGHT WITHIN REACH. BED LOW LAYING WITH ALARM ON.
--- NOTE | 2019-03-23 06:26 | NUR ---
PT. C/O HEADACHE. PRN TYLENOL GIVEN ORDERED. DENIES ANY BLURRED VISION. IV SITES REMAINS INTACT. CALL LIGHT WITHIN REACH. WILL ENDORSE PT. CARE TO INCOMING NURSE.
[2019-03-23 06:48] LABS: BASOPHIL % 0.5 % (0-2); PLATELET COUNT 240 x10^3mcL (130-400); RED CELL DISTRIBUTION WIDTH 14.4 % (11.5-14.5)
[2019-03-23 07:35] LABS: CALCIUM 8.5 mg/dL (8.5-10.1); CARBON DIOXIDE 23.3 mmol/L (21-32); CHLORIDE SERUM 105 mmol/L (98-107); CREATININE SERUM 0.8 mg/dL (0.6-1.0); GFR1 > 60 mL/min; GLUCOSE SERUM 115 mg/dL (74-106); MAGNESIUM 2.5 mg/dL (1.8-2.4); PHOSPHOROUS 4.1 mg/dL (2.5-4.9); POTASSIUM SERUM 3.8 mmol/L (3.5-5.1); SODIUM SERUM 140 mmol/L (136-145)
--- NOTE | 2019-03-23 07:35 | NUR ---
RECEIVED PT IN NO ACUTE DISTRESS. SLEEPING BUT EASILY AROUSABLE. RESP EVEN AND UNLABORED ON RA. IV TO RUE AND L HAND, NO REDNESS OR SWELLING TO IV SITE. FALL PRECAUTIONS IN PLACE. BED IN LOW POSITION, CALL LIGHT WITHIN REACH. WILL CONTINUE TO MONITOR.
[2019-03-23 08:00] VITALS: BP 104/62
--- NOTE | 2019-03-23 13:52 | NUR ---
PT RESTING IN BED. NO ACUTE DISTRESS. C/O HUNT, WILL MEDICATE ORDERED. IV TO RUE AND L HAND, NO REDNESS OR SWELLING NOTED. VISITOR AT BEDSIDE. FALL PRECAUTIONS. CALL LIGHT WITHIN REACH. WILL CONTINUE TO MONITOR.
[2019-03-23 16:36] VITALS: BP 117/61
--- NOTE | 2019-03-23 18:03 | NUR ---
PT RESTING IN BED WATCHING TV. NO ACUTE DISTRESS. DENIES HUNT AT THIS TIME. AAOX3, FORGETFUL AND CONFUSED AT TIMES. SPEECH CLEAR AT THIS TIME. NO FACIAL DROOP NOTED. IV TO RUE AND L HAND, NO REDNESS OR SWELLING NOTED. HOB ELEVATED. PT GIVEN HOT WATER REQUESTED. FALL PRECAUTIONS. BED IN LOW POSITION, CALL LIGHT WITHIN REACH. WILL ENDORSE TO ONCOMING SHIFT.
--- NOTE | 2019-03-23 18:44 | NUR ---
AMBULATED WITH PT AROUND THE HALLWAY. PT GAIT SLOW, SLIGHTLY UNSTEADY, USING CANE. PT NOW BACK TO ROOM, SITTING ON THE SIDE OF THE BED. NO ACUTE DISTRESS. CALL LIGHT WITHIN REACH. FALL PRECAUTIONS. WILL ENDORSE TO ONCOMING SHIFT.
--- NOTE | 2019-03-23 20:01 | NUR ---
RECIVED PT IN BED AAOX3 NO ACUTE DISTRESS NOTED, LUNG SOUNDS CTA , ABD SOFT BS ACTIVE X4 , HL INTACT FLUSHING WELL, CALL LIGHT AND BD ALRM INPLACE FOR SAFTY .
[2019-03-23 20:41] VITALS: BP 100/52
--- NOTE | 2019-03-24 00:09 | NUR ---
PT C/O SEVERE HEADACHE 01/14 NORCO GIVEN PO ORDERED .
--- NOTE | 2019-03-24 04:35 | NUR ---
POST NORCO PT'S IN BED WITH EYES CLOSED .
--- NOTE | 2019-03-24 05:28 | NUR ---
PT C/O NAUSEA , ZOFRAN GIVEN NO EMESIS NOTED.
--- NOTE | 2019-03-24 06:11 | NUR ---
NO CHANGES OF CONDITION NOTED ALL DUE MEDS GIVEN NO REACTION NOTED, HL X2 INTACT FLUSHING WELL, PT DENY PAIN
--- NOTE | 2019-03-24 06:24 | NUR ---
I HAVE REVIEWED THE DATA COLLECTION BY CENTERLESS GRINDER OPERATOR (NAME):LILY BIRMINGHAM ENTERED ON (DATE/TIME): I CONCUR WITH THE DATA AND ANY EXCEPTIONS OR COMMENTS ARE LISTED BELOW:
[2019-03-24 06:39] LABS: CALCIUM 8.7 mg/dL (8.5-10.1); CARBON DIOXIDE 27.1 mmol/L (21-32); CHLORIDE SERUM 105 mmol/L (98-107); CREATININE SERUM 0.9 mg/dL (0.6-1.0); GFR1 > 60 mL/min; GLUCOSE SERUM 113 mg/dL (74-106); MAGNESIUM 2.6 mg/dL (1.8-2.4); PHOSPHOROUS 4.9 mg/dL (2.5-4.9); POTASSIUM SERUM 3.8 mmol/L (3.5-5.1); SODIUM SERUM 142 mmol/L (136-145)
[2019-03-24 06:43] LABS: BASOPHIL % 0.3 % (0-2); PLATELET COUNT 259 x10^3mcL (130-400); RED CELL DISTRIBUTION WIDTH 14.3 % (11.5-14.5)
[2019-03-24 06:56] VITALS: BP 112/63
--- NOTE | 2019-03-24 07:51 | NUR ---
RECEIVED PT LYING IN BED AWAKE/ ALERT. BREATHING EVEN/ UNLABORED, ON RA. NO REDNESS/ SWELLING AT IV SITE. BED IN LOW POSITION, CALL LIGHT IN REACH, SIDE RAILS UP X 2. WILL CONTINUE TO MONITOR
[2019-03-24 08:27] VITALS: BP 110/69
[2019-03-24 09:36] VITALS: BP 117/48
[2019-03-24 10:37] VITALS: BP 129/62
[2019-03-24] MEDS ORDERED: BACTRIM DS1 TAB PO (11:15)
--- NOTE | 2019-03-24 12:19 | NUR ---
PT LYING IN BED, EYES CLOSED. AROUSABLE TO VERBAL STIMULI. BREATHING EQUAL/ UNLABORED. NO ACUTE DISTRESS NOTED. BED IN LOW POSITION, CALL LIGHT IN REACH, FALL PRECAUTIONS MAINTAINED. WILL CONTINUE TO MONITOR
[2019-03-24 12:46] VITALS: BP 129/62
--- NOTE | 2019-03-24 14:37 | NUR ---
PT DISCHARGED HOME WITH HOME HEALTH, IN NO ACUTE DISTRESS. PT A/A/ OX4. PT AMBULATORY WITH CANE, ACCOMPANIED BY ALIYA LEMUS AND FAMILY. RX GIVEN, DC EDUCATION PROVIDED, PT AND FAMILY VERBALIZED UNDERSTANDING. INSTRUCTED PT TO F/U WITH PCP. PT STATED SHE HAS A NEUROLOGY APPT THIS SATURDAY. IV TO R. ARM, AND L. HAND DC'D WITH CATHETERS INTACT. BELONGINGS WITH PT.
== END 2019-03-24 14:35 | disposition home health service (06) | DRG 52 ==
LOC: ED 15:05 → MU 03-21 00:46 → DU 03-21 00:46 → MU 03-21 03:15 → DU 03-21 04:18 → MU 03-22 15:00
PROVIDERS: Emergency Medicine; ADMIT Internal Medicine
DX: G93.41 Metabolic encephalopathy (principal); B96.1 Klebsiella pneumoniae [K. pneumoniae] as the cause of diseases classified elsewhere; E11.9 Type 2 diabetes mellitus without complications; E66.9 Obesity, unspecified; E78.5 Hyperlipidemia, unspecified; N39.0 Urinary tract infection, site not specified; G90.8 Other disorders of autonomic nervous system; I10 Essential (primary) hypertension; F32.9 Major depressive disorder, single episode, unspecified; F41.9 Anxiety disorder, unspecified; F17.210 Nicotine dependence, cigarettes, uncomplicated; G89.29 Other chronic pain; M54.9 Dorsalgia, unspecified; Z71.6 Tobacco abuse counseling; Z56.0 Unemployment, unspecified; Z68.30 Body mass index [BMI] 30.0-30.9, adult; Z79.899 Other long term (current) drug therapy
CPT/HCPCS: 82962; 83880; 84439; 97116-GP; 97530-GP; 99406; G0378; J0696; J0744; J1885; J2060; J7030; J7060; Q0092; Q9967

== ENCOUNTER 2019-04-15 18:26 | Emergency (ER) | payer OTHER ==
[~2019-04-15] VITALS: Ht 165.1 cm; Wt 104.3 kg
[~2019-04-15 18:26] MED LIST changes: +ABILIFY5 M1 PO; +BACTRIM DS1 TAB PO; +IBUPROFEN400 MG PO
[2019-04-15 18:50] VITALS: Ht 165.1 cm; Wt 104.3 kg
[2019-04-15 21:04] LABS: AMPHETAMINE QUAL UR NONE DETECTED (See below)
[2019-04-15 21:41] LABS: CALCIUM 8.4 mg/dL (8.5-10.1); CARBON DIOXIDE 27.7 mmol/L (21-32); CHLORIDE SERUM 106 mmol/L (98-107); CREATININE SERUM 0.8 mg/dL (0.6-1.0); GFR1 > 60 mL/min; GLUCOSE SERUM 98 mg/dL (74-106); POTASSIUM SERUM 3.8 mmol/L (3.5-5.1); SODIUM SERUM 141 mmol/L (136-145)
[2019-04-15 21:47] LABS: ALKALINE PHOSPHATASE 82 U/L (46-116); ALT/SGPT 54 U/L (14-59); AST/SGOT 26 U/L (15-37); BILIRUBIN TOTAL 0.3 mg/dL (0.20-1.00); TOTAL PROTEIN, SERUM 6.9 g/dL (6.4-8.2)
[2019-04-15 21:55] LABS: ALBUMIN 3.3 g/dL (3.4-5.0)
[2019-04-15 23:17] VITALS: BP 123/70
== END 2019-04-15 23:18 | disposition home or self-care (01) ==
LOC: ED 18:26
PROVIDERS: Emergency Medicine
DX: R51 Headache (principal); I10 Essential (primary) hypertension; E11.9 Type 2 diabetes mellitus without complications; F32.9 Major depressive disorder, single episode, unspecified; F41.9 Anxiety disorder, unspecified; E78.00 Pure hypercholesterolemia, unspecified; Z98.890 Other specified postprocedural states
CPT/HCPCS: 82962; G0480; J7030

== ENCOUNTER 2019-06-04 13:16 | Emergency (ER) | payer OTHER ==
[~2019-06-04] VITALS: Ht 160 cm; Wt 104.3 kg
[2019-06-04 13:22] VITALS: Ht 160 cm; Wt 104.3 kg
[2019-06-04 14:41] LABS: BASOPHIL % 0.3 % (0-2); PLATELET COUNT 249 x10^3mcL (130-400); RED CELL DISTRIBUTION WIDTH 13.8 % (11.5-14.5)
[2019-06-04 14:53] LABS: CALCIUM 8.7 mg/dL (8.5-10.1); CARBON DIOXIDE 26.1 mmol/L (21-32); CHLORIDE SERUM 105 mmol/L (98-107); GFR1 > 60 mL/min; GLUCOSE SERUM 191 mg/dL (74-106); POTASSIUM SERUM 3.4 mmol/L (3.5-5.1); SODIUM SERUM 143 mmol/L (136-145)
[2019-06-04 14:57] LABS: ALBUMIN 3.5 g/dL (3.4-5.0); ALKALINE PHOSPHATASE 106 U/L (46-116); ALT/SGPT 57 U/L (14-59); AST/SGOT 26 U/L (15-37); BILIRUBIN DIRECT 0.07 mg/dL (0.0-0.2); BILIRUBIN TOTAL 0.4 mg/dL (0.20-1.00); LIPASE 145 IU/L (73-393)
[2019-06-04 15:32] VITALS: BP 120/59
== END 2019-06-04 15:32 | disposition home or self-care (01) ==
LOC: ED 13:16
PROVIDERS: Student in an Organized Health Care Education/Training Program
DX: R07.89 Other chest pain (principal); R51 Headache; R11.2 Nausea with vomiting, unspecified; R68.83 Chills (without fever)
CPT/HCPCS: 83880; J0780

== ENCOUNTER 2019-07-15 12:19 | Emergency (ER) | payer OTHER ==
[2019-07-15 12:21] VITALS: Ht 165.1 cm
[2019-07-15 14:57] VITALS: BP 139/75
== END 2019-07-15 14:57 | disposition home or self-care (01) ==
LOC: ED 12:19
DX: J20.9 Acute bronchitis, unspecified (principal); R51 Headache; R11.2 Nausea with vomiting, unspecified; I10 Essential (primary) hypertension; E11.9 Type 2 diabetes mellitus without complications; E78.00 Pure hypercholesterolemia, unspecified; Z98.51 Tubal ligation status
CPT/HCPCS: J1885; J2765; J7030; Q0092

== ENCOUNTER 2020-01-30 15:26 | Emergency (ER) | payer OTHER ==
[~2020-01-30] VITALS: Ht 160 cm; Wt 100.7 kg
[2020-01-30 16:09] VITALS: Ht 160 cm; Wt 100.7 kg
[2020-01-30 16:59] VITALS: BP 158/90
== END 2020-01-30 16:59 | disposition home or self-care (01) ==
LOC: ED 15:26
DX: H10.33 Unspecified acute conjunctivitis, bilateral (principal); I10 Essential (primary) hypertension; E11.9 Type 2 diabetes mellitus without complications; E78.00 Pure hypercholesterolemia, unspecified; Z98.51 Tubal ligation status
CPT/HCPCS: J2270; J2405

== ENCOUNTER 2020-04-28 11:46 | Emergency (ER) | payer OTHER ==
[~2020-04-28] VITALS: Ht 165.1 cm; Wt 83.9 kg
[2020-04-28 11:54] VITALS: Ht 165.1 cm; Wt 83.9 kg
[2020-04-28 12:49] LABS: BASOPHIL % 0.5 % (0-2); PLATELET COUNT 297 x10^3mcL (130-400); RED CELL DISTRIBUTION WIDTH 14.2 % (11.5-14.5)
[2020-04-28 13:16] LABS: CALCIUM 9.3 mg/dL (8.5-10.1); CHLORIDE SERUM 102 mmol/L (98-107); GFR1 > 60 mL/min; GLUCOSE SERUM 126 mg/dL (74-106); SODIUM SERUM 138 mmol/L (136-145)
[2020-04-28 13:20] LABS: ALBUMIN 3.8 g/dL (3.4-5.0); ALKALINE PHOSPHATASE 97 U/L (46-116); ALT/SGPT 59 U/L (14-59); AST/SGOT 29 U/L (15-37); BILIRUBIN TOTAL 0.52 mg/dL (0.20-1.00); TOTAL PROTEIN, SERUM 8.2 g/dL (6.4-8.2)
[2020-04-28 15:40] VITALS: BP 130/75
== END 2020-04-28 15:40 | disposition home or self-care (01) ==
LOC: ED 11:46
PROVIDERS: Emergency Medicine
DX: S05.02XA Injury of conjunctiva and corneal abrasion without foreign body, left eye, initial encounter (principal); I10 Essential (primary) hypertension; E78.00 Pure hypercholesterolemia, unspecified; G43.909 Migraine, unspecified, not intractable, without status migrainosus; W57.XXXA Bitten or stung by nonvenomous insect and other nonvenomous arthropods, initial encounter; Y93.89 Activity, other specified; Y92.89 Other specified places as the place of occurrence of the external cause; Y99.8 Other external cause status
CPT/HCPCS: 82962; Q0092

== ENCOUNTER 2020-05-01 20:30 | Emergency (ER) | payer OTHER ==
[~2020-05-01] VITALS: Ht 157.5 cm; Wt 99.8 kg
[2020-05-01 20:36] VITALS: Ht 157.5 cm; Wt 99.8 kg
[2020-05-01 22:07] VITALS: BP 146/95
== END 2020-05-01 22:07 | disposition home or self-care (01) ==
LOC: ED 20:30
DX: H11.422 Conjunctival edema, left eye (principal); H11.432 Conjunctival hyperemia, left eye; I10 Essential (primary) hypertension; E11.9 Type 2 diabetes mellitus without complications; E78.00 Pure hypercholesterolemia, unspecified; G43.909 Migraine, unspecified, not intractable, without status migrainosus; Z98.51 Tubal ligation status
CPT/HCPCS: Q0162